=== PATIENT | female | born 1940 | race Caucasian/White ===

== ENCOUNTER 2017-08-05 14:08 | Inpatient (IN) | payer MEDICARE ==
[~2017-08-05] VITALS: Ht 162.6 cm; Wt 68.4 kg
[~2017-08-05 14:08] MED LIST: ALEN1TAB48 PO; AMIO200T PO; ASPI-516 CHEW; CYAN1TAB24; FERR150C; LOSA50TA PO; MELO7.5T27 PO
[2017-08-05 16:45] VITALS: BP 183/85; PULSE 67; RESP 18; TEMP 97.2; O2SAT 95
[2017-08-05] MEDS ORDERED: NALOXONE HCL 0.4 MG/ML AMP IV PUSH PRN (18:15)
[2017-08-05] MEDS ORDERED: LACTULOSE SYRUP 20 GM/30 ML CUP PO PRN (18:15)
[2017-08-05] MEDS ORDERED: MAGNESIUM HYDROXIDE SUSP 30 ML CUP PO PRN (18:15)
[2017-08-05] MEDS ORDERED: SENNOSIDES 8.6 MG TAB PO PRN (18:15)
[2017-08-05] MEDS ORDERED: SODIUM CHLORIDE 0.9% FLUSH 10 ML FLUSH IV FLUSH PRN (18:15)
[2017-08-05] MEDS ORDERED: BISACODYL 10 MG SUPP RECTAL PRN (18:15)
[2017-08-05] MEDS ORDERED: SODIUM CHLOR 0.9% 250 ML INJ 250 ML IV ONE (19:00)
[2017-08-05] MEDS ORDERED: ACETAMINOPHEN 325 MG TAB PO PRN (19:00)
[2017-08-05] MEDS ORDERED: SODIUM CHLOR 0.45% 1000 ML INJ 1,000 ML IV SCH (19:00)
[2017-08-05] MEDS ORDERED: diphenhydrAMINE HCL 25 MG CAP PO PRN (19:00)
[2017-08-05 20:00] VITALS: BP 191/90; PULSE 58; RESP 21; TEMP 96.4; O2SAT 97
[2017-08-05] MEDS ORDERED: diphenhydrAMINE HCL 50 MG/ML VIAL IV PUSH PRN (20:45)
[2017-08-05] MEDS ORDERED: EPINEPHrine HCL (1:1000) 1 MG/ML VIAL OTHER PRN (20:45)
[2017-08-05] MEDS: DOCUSATE SODIUM 50 MG/SENNA 8.6 MG TAB PO SCH (21:00)
[2017-08-05] MEDS: predniSONE 10 MG TAB PO SCH (21:00)
[2017-08-05] MEDS: SODIUM CHLORIDE 0.9% FLUSH 10 ML FLUSH IV FLUSH SCH (21:00)
[2017-08-05] MEDS ORDERED: diphenhydrAMINE HCL 25 MG CAP PO SCH (21:00)
[2017-08-05] MEDS ORDERED: ACETAMINOPHEN 325 MG TAB PO SCH (21:00)
[2017-08-05] MEDS ORDERED: SODIUM CHLORID 0.9% 500 ML INJ 500 ML IV SCH (21:00)
[2017-08-05 21:43] LABS: AUTOMATED NEUTROPHIL # 1.9 TH/MM3 (1.8-7.7); BASOPHIL # 0.1 TH/MM3 (0-0.2); BASOPHIL % 2.2 % (0.0-2.0); EOSINOPHIL # 0.5 TH/MM3 (0-0.4); EOSINOPHIL % 13.3 % (0.0-4.0); HEMATOCRIT 32.6 % (35.0-46.0); LYMPH % 24.4 % (9.0-44.0); LYMPHOCYTE # 0.9 TH/MM3 (1.0-4.8); MEAN CELL VOLUME 98.4 FL (80.0-100.0); MEAN CORPUSCULAR HEMOGLOBIN 34.4 PG (27.0-34.0); NEUT % 53.1 % (16.0-70.0); RED BLOOD COUNT 3.31 MIL/MM3 (4.00-5.30); RED CELL DISTRIBUTION WIDTH 13.6 % (11.6-17.2); WHITE BLOOD COUNT 3.6 TH/MM3 (4.0-11.0)
[2017-08-05 21:46] LABS: HEMO FLAGS AUTO DIFF; PLATELET COUNT 9 TH/MM3 (150-450)
[2017-08-05] MEDS ORDERED: DEXTROSE 5% IN WATE 500 ML INJ 500 ML OTHER SCH (22:00)
[2017-08-05] MEDS ORDERED: IMMUNE GLOBULIN IV SCH (22:00)
[2017-08-05 22:12] LABS: OVALOCYTES 1+ (NORMAL); PLATELET ESTIMATE SMEAR RARE (NORMAL); PLATELET MORPHOLOGY NORMAL (NORMAL); SCAN/DIFF AUTO DIFF CONFIRMED; SPHEROCYTES 1+ (NORMAL)
[2017-08-05 22:38] VITALS: BP 157/79; PULSE 62; RESP 18; TEMP 98.4; O2SAT 94
[2017-08-05 22:59] VITALS: BP 184/85; PULSE 69; RESP 18; TEMP 96.5; O2SAT 95
--- NOTE | 2017-08-05 23:29 | HHI.HP ---
[facility] Primary Care Physician Non-Staff Admission Diagnosis Diagnoses: Travel History International Travel<30 Days: No Contact w/Intl Traveler <30 Da: No Traveled to Known Affected Are: No History of Present Illness 77-year-old female with a past medical history significant for hypertension and atrial fibrillation (not currently anticoagulated) presented to the emergency department until [place] with bilateral lower extremity petechiae and purpura on her bilateral upper extremities and in her mouth. The patient has a history of pancytopenia for which she sees a furnace tender in [place], Dr. Michel. She had a bone marrow biopsy done over the summer which per the patient was negative for cancer. She was initially diagnosed with her pancytopenia in 2014. She is also had a 60 pound weight loss since December. The patient reports that she had a nosebleed with multiple clots on Saturday and . She developed purpura on her bilateral upper extremities and within her mouth and tongue on Saturday. She called her furnace tender office who recommended further evaluation in the emergency department. On arrival to the emergency department , the patient's platelet count was 3. She denies active bleeding. Urine positive for large occult blood. Review of Systems Denies fever or chills Denies blurry vision, otorrhea, rhinorrhea Denies sore throat and cough No chest pain, palpitations, shortness of breath No abdominal pain Denies constipation/diarrhea/nausea/vomiting Denies muscle pain/weakness No rashes Past Family Social History Past Medical History Hypertension Atrial fibrillation (not currently on anticoagulation) Past Surgical History Bilateral cataract surgery Cholecystectomy Appendectomy Bilateral carpal tunnel release Bone marrow biopsy Reported Medications Reported Meds & Active Scripts Active Reported Aspirin 81 Mg Chew 81 Mg CHEW DAILY Losartan (Losartan Potassium) 50 Mg Tab 50 Mg PO BID Ferrex 150 (Polysaccharide Iron Complex) 150 Mg Iron Cap B12 (Cyanocobalamin) 1,000 Mcg Tab Meloxicam 7.5 Mg Tab 7.5 Mg PO DAILY Amiodarone (Amiodarone HCl) 200 Mg Tab 200 Mg PO BID Alendronate (Alendronate Sodium) 70 Mg Tab 70 Mg PO Q7D Allergies: Coded Allergies: aspirin (Verified Allergy, Severe, 08/05/17) To large doses of asprin. piroxicam (Verified Allergy, Severe, 08/05/17) Family History Negative for CAD/DM Social History Denies tobacco, alcohol and illicit drugs Physical Exam Vital Signs Vital Signs Date Time Temp Pulse Resp B/P (MAP) Pulse Ox O2 Delivery O2 Flow Rate FiO2 08/05/17 22:59 96.5 69 18 184/85 95 08/05/17 22:38 98.4 62 18 157/79 94 08/05/17 20:00 96.4 58 21 191/90 (123) 97 08/05/17 16:45 97.2 67 18 183/85 (117) 95 Physical Exam GENERAL: female sitting up in bed eating SKIN: Multiple purpura on bilateral upper extremities, a few scattered lesions on the chest and back, and in the patient's mouth. Bilateral lower extremity petechiae present. HEAD: Atraumatic. Normocephalic. No temporal or scalp tenderness. EYES: Pupils equal round and reactive. Extraocular motions intact. No scleral icterus. No injection or drainage. ENT: Nose without bleeding, purulent drainage or septal hematoma. Throat without erythema, tonsillar hypertrophy or exudate. Uvula midline. Airway patent. NECK: Trachea midline. No JVD or lymphadenopathy. Supple, nontender, no meningeal signs. CARDIOVASCULAR: Regular rate and rhythm without murmurs, gallops, or rubs. RESPIRATORY: Clear to auscultation. Breath sounds equal bilaterally. No wheezes , rales, or rhonchi. GASTROINTESTINAL: Abdomen soft, non-tender, nondistended. No hepato-splenomegaly , or palpable masses. No guarding. MUSCULOSKELETAL: Extremities without clubbing, cyanosis, or edema. No joint tenderness, effusion, or edema noted. No calf tenderness. NEUROLOGICAL: Awake and alert. Cranial nerves II through XII intact. Motor and sensory grossly within normal limits. Normal speech. Laboratory Laboratory Tests Test 08/05/17 21:08 White Blood Count 3.6 Red Blood Count 3.31 Hemoglobin 11.4 Hematocrit 32.6 Mean Corpuscular Volume 98.4 Mean Corpuscular Hemoglobin 34.4 Mean Corpuscular Hemoglobin Concent 35.0 Red Cell Distribution Width 13.6 Platelet Count 9 Mean Platelet Volume 9.1 Neutrophils (%) (Auto) 53.1 Lymphocytes (%) (Auto) 24.4 Monocytes (%) (Auto) 7.0 Eosinophils (%) (Auto) 13.3 Basophils (%) (Auto) 2.2 Neutrophils # (Auto) 1.9 Lymphocytes # (Auto) 0.9 Monocytes # (Auto) 0.3 Eosinophils # (Auto) 0.5 Basophils # (Auto) 0.1 CBC Comment AUTO DIFF Differential Comment AUTO DIFF CONFIRMED Platelet Estimate RARE Platelet Morphology Comment NORMAL Spherocytes 1+ Ovalocytes 1+ Blood Smear Pathologist Review Fibrinogen 361 Lactate Dehydrogenase 327 Result Diagram: 08/05/172107 Caprini VTE Risk Assessment Caprini VTE Risk Assessment: Mod/High Risk (score >= 2) Caprini Risk Assessment Model Point Value = 1 Point Value = 2 Point Value = 3 Point Value = 5 Age 41-60 Minor surgery BMI > 25 kg/m2 Swollen legs Varicose veins or History of unexplained or recurrent spontaneous Oral contraceptives or hormone replacement Sepsis (< 1 month) Serious lung disease, including pneumonia (< 1 month) Abnormal pulmonary function Acute myocardial infarction Congestive heart failure (< 1 month) History of inflammatory bowel disease Medical patient at bed rest Age 61-74 Arthroscopic surgery Major open surgery (> 45 min) Laparoscopic surgery (> 45 min) Malignancy Confined to bed (> 72 hours) Immobilizing plaster cast Central venous access Age >= 75 History of VTE Family history of VTE Factor V Leiden Prothrombin 50080H Lupus anticoagulant Anticardiolipin antibodies Elevated serum homocysteine Heparin-induced thrombocytopenia Other congenital or acquired thrombophilia Stroke (< 1 month) Elective arthroplasty Hip, pelvis, or leg fracture Acute spinal cord injury (< 1 month) Prophylaxis Regimen Total Risk Factor Score Risk Level Prophylaxis Regimen 0-1 Low Early ambulation 2 Moderate Order ONE of the following: *Sequential Compression Device (SCD) *Heparin 5000 units SQ BID 3-4 Higher Order ONE of the following medications: *Heparin 5000 units SQ TID *Enoxaparin/Lovenox 40 mg SQ daily (WT < 150 kg, CrCl > 30 mL/min) *Enoxaparin/Lovenox 30 mg SQ daily (WT < 150 kg, CrCl > 10-29 mL/min) *Enoxaparin/Lovenox 30 mg SQ BID (WT < 150 kg, CrCl > 30 mL/min) AND/OR *Sequential Compression Device (SCD) 5 or more Highest Order ONE of the following medications: *Heparin 5000 units SQ TID (Preferred with Epidurals) *Enoxaparin/Lovenox 40 mg SQ daily (WT < 150 kg, CrCl > 30 mL/min) *Enoxaparin/Lovenox 30 mg SQ daily (WT < 150 kg, CrCl > 10-29 mL/min) *Enoxaparin/Lovenox 30 mg SQ BID (WT < 150 kg, CrCl > 30 mL/min) AND *Sequential Compression Device (SCD) Assessment and Plan Assessment and Plan Assessment/plan: 1. Severe thrombocytopenia with pancytopenia Patient with history of pancytopenia, initially diagnosed in 2014 Platelet count 3 in the deltoid and the ED, 9 currently Status post transfusion of 1 unit of platelets Hematology consulted, appreciate assistance Monitor platelet count closely Monitor for signs of bleeding Transfuse when necessary 2. Atrial fibrillation Continue home amiodarone 3. Hypertension Continue home losartan FEN Regular diet Electrolytes: monitor and replete prn Holding pharmacologic anticoagulation secondary to severe thrombocytopenia Physician Certification 2 Midnight Certification Type: Admission for Inpatient Services Order for Inpatient Services The services are ordered in accordance with Medicare regulations or non- Medicare payer requirements, as applicable. In the case of services not specified as inpatient-only, they are appropriately provided as inpatient services in accordance with the 2-midnight benchmark. Estimated LOS (days): 2 2 days is the estimated time the patient will need to remain in the hospital, assuming treatment plan goals are met and no additional complications. Post-Hospital Plan: Not yet determined Liana Warren MD Aug 05, 2017 23:29
[2017-08-06] VITALS (9 sets, daily range): BP systolic 129–180; BP diastolic 60–84; PULSE 55–78; RESP 16–21; TEMP 96.7–99; O2SAT 95–99
[2017-08-06] MEDS ORDERED: LOSARTAN 50 MG TAB PO ONE (00:45)
--- NOTE | 2017-08-06 07:31 | MB ---
cc: SADE MELO MD DATE OF CONSULTATION 08/05/2017 CHIEF COMPLAINT Thrombocytopenia. HISTORY OF PRESENT ILLNESS Ms. Tian is a 77-year-old lady with a history of anemia and leukopenia who follows with an outside space and missile defense operations, Dr. Guthrie. She presented to the emergency room with petechiae, purpura and epistaxis. This has been has a going on for approximately the past week. She reports that in early July she was treated for an upper respiratory infection with prednisone and ciprofloxacin. White blood cell count at 5.5 from labs taken on July 25, 2017, hemoglobin of 12.3, MCV is 104.7, platelet count is 310,000. From May 30, 2017, white blood cell count is 3.9, hemoglobin is 11.1, MCV is 105.4 with a platelet count of 309,000. From March of 2017, B12 is 768, folate is 15, ferritin of 30, total iron-binding capacity is 342, percent sat of 24.9. Iron is 85. CBC from at time with a white blood cell count of 3, hemoglobin of 11.8 and platelet count of 222,000. In April of 2017 white blood cell count of 3.2, hemoglobin is 12, MCV of 103.1 with a platelet count of 288,000. She also has a history of uterine cancer in 2006 where she underwent a hysterectomy, did not receive any chemotherapy or radiation therapy. She has also been seen by a clinical support associate ad is status post endoscopy and colonoscopy which per report were unrevealing. She has lost approximately 60 pounds unintentionally over the past several months. Upon presentation to our emergency room, she was found to have a white blood cell count of 3.3, hemoglobin at 10.1, platelet count of 3000 with an ANC of 2, absolute lymphocyte count of 0.3 and no abnormal blasts. On chemistry studies she was found to have a creatinine of 1.1, an EGFR of 48, albumin of 3.2, total protein of 6.5, total bili of 0.6. Lactic acid is 0.9. She has a large amount of occult blood present in her urine. REVIEW OF SYSTEMS HEME: Petechiae and purpura. ENT: Nosebleeds. RESPIRATORY: Recovering from upper respiratory infection/bronchitis. All other review of systems are negative, 12 point ROS conducted PAST MEDICAL HISTORY 1. Leukopenia. 2. Anemia. 3. History of atrial fibrillation. 4. Asthma. 5. Hypertension. 6. Arthritis. PAST SURGICAL HISTORY 1. Uterine cancer in 2006 status post hysterectomy. 2. Cholecystectomy. 3. Appendectomy. 4. Breast cyst removal. 5. Carpal tunnel surgery in both hands. 6. Cataract and right eyelid implant in 2001. 7. Cataract pain and left eye implant in 2001. ALLERGIES FELDENE. FISH CONTAINING PRODUCTS. SOCIAL HISTORY The patient denies tobacco, alcohol and illegal drug use. She has a good support system and she currently lives with her friend Donaldo. She is a retired teacher. FAMILY HISTORY No known family history of blood disorders. PHYSICAL EXAMINATION VITAL SIGNS: Temperature of 97.2, pulse of 67, respiratory rate of 18, blood pressure of 183/85, pulse ox is 95%. GENERAL: A well-developed, well-nourished lady in no distress. EYES: Pupils equal, round and reactive to light and accommodation. HEAD: Normocephalic, atraumatic. ENT: With purple lesions present on the inside of her mouth. CARDIOVASCULAR: Regular rate and rhythm with no murmurs. RESPIRATORY: Clear to auscultation bilaterally. ABDOMEN: Soft, nontender, nondistended with bowel sounds present. EXTREMITIES: With no edema. SKIN: No with petechiae present on legs and large purpura present on hands. Large bruising present on arms. Also scattered petechiae on chest, back and abdomen. NEURO: Grossly nonfocal. PSYCH: Appropriate mood and affect. ASSESSMENT AND PLAN 1. Single digit thrombocytopenia that is acute. The patient reports recent recovery from a upper respiratory illness. She was given steroids as well as ciprofloxacin. She reports that she took approximately [id number] days of the ciprofloxacin but then stopped as this made her nauseated. Upon review of adverse effects of ciprofloxacin, there is rare cause of thrombocytopenia, however, not a strong indicator of drug-induced thrombocytopenia. She denies recent hospital admission containing heparin blood products. Coags are within normal limits. She has no early cells on her differential to indicate blasts. She does have leukopenia and anemia, however, these are approximately stable from her blast last values that were approximately 1 year. This is highly suspicious for an ITP. I will give IVIG and steroids 1 mg/kg due to single digit thrombocytopenia. Recent meloxicam and aspirin use which predisposes the patient to bleeding and we will also transfuse platelets. I have discussed that the patient is in a difficult clinical situation with increased risk for bleeding given single digit platelet count and that he use an aspirin use. She is at risk for spontaneous brain bleeding. Our goal is to obtain a safe platelet count to prevent clinically significant bleeding. This is not congenital thrombocytopenia as she does not have a history of low platelet count. Her only recent drug has been ciprofloxacin which is not a common cause of drug induced thrombocytopenia. She has had no other changes in her medicines. 2. Stable chronic leukopenia and anemia. She is on a B12 supplement with most recent count done several months ago within normal limits. Folate within normal limits. Thyroid studies were also within normal limits. She has had a bone marrow biopsy in March of 2017 which shows no evidence of marrow involved by clinical plasma cell population. Normocellular marrow for age, 20-30% with maturing trilineage hepatopoiesis. Comment section indicates several small irregular lymphoid aggregates are present on the core biopsies; the clinical significance of this finding in his undetermined. We will also check LDH and pathologist for review of smear. Will recheck CBC. Upon platelet transfusion we will check a post-platelet transfusion count. 3. Chronic renal disease with creatinine at baseline. MD SISSY Guallpa/GERARDO /8:02 PM /6:51 AM MTDJordan
[2017-08-06] MEDS: DOCUSATE SODIUM 50 MG/SENNA 8.6 MG TAB PO SCH ×2 (08:53→21:00)
[2017-08-06] MEDS: LOSARTAN 50 MG TAB PO SCH ×2 (08:53→21:58)
[2017-08-06] MEDS: AMIODARONE 200 MG TAB PO SCH ×2 (08:53→21:58)
[2017-08-06] MEDS: SODIUM CHLORIDE 0.9% FLUSH 10 ML FLUSH IV FLUSH SCH ×2 (08:54→22:02)
[2017-08-06 09:09] LABS: RETIC % 1.7 % (0.4-3.0)
[2017-08-06 09:15] LABS: AUTOMATED NEUTROPHIL # 0.4 TH/MM3 (1.8-7.7); BASOPHIL % 1.5 % (0.0-2.0); EOSINOPHIL % 0.8 % (0.0-4.0); HEMATOCRIT 29.4 % (35.0-46.0); LYMPH % 34.3 % (9.0-44.0); LYMPHOCYTE # 0.2 TH/MM3 (1.0-4.8); MEAN CELL VOLUME 97.9 FL (80.0-100.0); MEAN CORPUSCULAR HEMOGLOBIN 33.6 PG (27.0-34.0); MEAN CORPUSCULAR HGB CONC 34.3 % (32.0-36.0); MONO % 5.5 % (0.0-8.0); NEUT % 57.9 % (16.0-70.0); RED CELL DISTRIBUTION WIDTH 13.6 % (11.6-17.2); WHITE BLOOD COUNT 0.6 TH/MM3 (4.0-11.0)
[2017-08-06 09:17] LABS: REVIEW FLAG FINAL
[2017-08-06 09:21] LABS: HEMO FLAGS AUTO DIFF
[2017-08-06 09:25] LABS: PLATELET COUNT 3 TH/MM3 (150-450)
[2017-08-06 09:26] LABS: ALT (GPT) 20 U/L (10-53); ANION GAP 8 MEQ/L (5-15); AST (GOT) 17 U/L (15-37); BICARBONATE 24.7 MEQ/L (21.0-32.0); BLOOD UREA NITROGEN 20 MG/DL (7-18); CHLORIDE 105 MEQ/L (98-107); GLOMERULAR FILTRATION RATE 48 ML/MIN (>89); POTASSIUM 4.4 MEQ/L (3.5-5.1); SODIUM (NA) 138 MEQ/L (136-145)
[2017-08-06 09:38] LABS: ALKALINE PHOSPHATASE 67 U/L (45-117); LDH SERUM 263 U/L (84-246); TOTAL BILIRUBIN ADULT 0.7 MG/DL (0.2-1.0)
--- NOTE | 2017-08-06 09:59 | RADRPT ---
EXAM DATE/TIME: 08/06/2017 09:13 [facility] COMPARISON: No previous studies available for comparison. INDICATIONS : Increased lab values. MEDICAL HISTORY : Hypertension. Arthritis. Afib. Asthma. Leukopenia. Uterine cancer. SURGICAL HISTORY : Appendectomy. Cholecystectomy. Hysterectomy. Bilateral cataract surgery. Bilateral carpel tunnel rele ase. ENCOUNTER: Initial ACUITY: 1 day PAIN SCORE: 2/10 LOCATION: Bilateral upper quadrant MEASUREMENTS: LIVER: 18.1 cm length COMMON DUCT: 8 mm RIGHT KIDNEY: 10.6 x 4.6 x 4.5 cm SPLEEN: 11.2 cm length FINDINGS: LIVER: Normal echotexture without focal lesion or ductal dilatation. COMMON DUCT: No intraluminal mass or stone visualized. GALLBLADDER: Surgically absent. PANCREAS: The visualized portions are within normal limits. Tail is not well-demonstrated. RIGHT KIDNEY: Mild prominence of the central collecting system. Otherwise unremarkable. SPLEEN: No focal lesion. CONCLUSION: 1. Status post cholecystectomy with slight prominence of the common bile duct. This is a common findi ng following cholecystectomy and generally secondary to reservoir effect. 2. Mild prominence of the right renal collecting system. Sergio Payne MD on August 06, 2017 at 9:53 Board Certified Radiologist. This report was verified electronically.
[2017-08-06 10:08] LABS: BANDS 2 % (0-6); METAMYELOCYTES 2 % (0-1); NEUTROPHIL # MANUAL DIFF 0.4 TH/MM3 (1.8-7.7); POLYS (SEG NEUTROPHILS) 56 % (16-70); WBC DIFF SAMPLE 41
[2017-08-06 10:09] LABS: PLATELET ESTIMATE SMEAR RARE (NORMAL); SCAN/DIFF FINAL DIFF MANUAL
[2017-08-06] MEDS ORDERED: SODIUM CHLOR 0.9% 250 ML INJ 250 ML IV ONE (10:30)
[2017-08-06] MEDS ORDERED: ACETAMINOPHEN 325 MG TAB PO PRN (10:30)
[2017-08-06] MEDS ORDERED: diphenhydrAMINE HCL 25 MG CAP PO PRN (10:30)
[2017-08-06 12:13] LABS: APTT (PATIENT) 26.4 SEC (24.3-30.1); PROTHROMBIN TIME - PATIENT 10.6 SEC (9.8-11.6)
--- NOTE | 2017-08-06 12:31 | EKG ---
Date Performed: 08/05/2017 Time Performed: 18:37:32 PTAGE: 77 years EKG: Sinus rhythm MINIMAL VOLTAGE CRITERIA FOR LVH, CONSIDER NORMAL VARIANT BORDERLINE ECG NO PREVIOUS TRACING DOCTOR: Zachary Neville Interpretating Date/Time 08/06/2017 12:30:54
--- NOTE | 2017-08-06 12:42 | PD.ONC.PN ---
Subjective Subjective Remarks Afebrile overnight. Patient resting in room without complaint. Denies bleeding. Has multiple bruises and petechiae. Has not tasted any blood in her mouth. Denies pain. Does not remember any trauma. Objective Data Date Time Temp Pulse Resp B/P (MAP) Pulse Ox O2 Delivery O2 Flow Rate FiO2 08/06/17 11:39 97.3 66 18 167/70 08/06/17 08:00 97.7 65 16 177/84 (115) 96 08/06/17 05:15 69 20 170/79 08/06/17 02:21 156/65 (95) 08/06/17 00:00 99.0 78 18 180/84 (116) 96 08/06/17 00:00 96.7 67 21 140/79 (99) 95 08/05/17 22:59 96.5 69 18 184/85 95 08/05/17 22:38 98.4 62 18 157/79 94 08/05/17 20:00 96.4 58 21 191/90 (123) 97 08/05/17 16:45 97.2 67 18 183/85 (117) 95 08/06/17 08/06/17 08/06/17 07:00 15:00 23:00 Intake Total 240 ml 226 ml Balance 240 ml 226 ml Result Diagram: 08/06/17 0755 08/06/17 0755 Laboratory Results Laboratory Tests Test 08/05/17 21:08 08/06/17 07:55 08/06/17 11:00 White Blood Count 3.6 TH/MM3 0.6 TH/MM3 Red Blood Count 3.31 MIL/MM3 3.00 MIL/MM3 Hemoglobin 11.4 GM/DL 10.1 GM/DL Hematocrit 32.6 % 29.4 % Mean Corpuscular Volume 98.4 FL 97.9 FL Mean Corpuscular Hemoglobin 34.4 PG 33.6 PG Mean Corpuscular Hemoglobin Concent 35.0 % 34.3 % Red Cell Distribution Width 13.6 % 13.6 % Platelet Count 9 TH/MM3 3 TH/MM3 Mean Platelet Volume 9.1 FL 10.3 FL Neutrophils (%) (Auto) 53.1 % 57.9 % Lymphocytes (%) (Auto) 24.4 % 34.3 % Monocytes (%) (Auto) 7.0 % 5.5 % Eosinophils (%) (Auto) 13.3 % 0.8 % Basophils (%) (Auto) 2.2 % 1.5 % Neutrophils # (Auto) 1.9 TH/MM3 0.4 TH/MM3 Lymphocytes # (Auto) 0.9 TH/MM3 0.2 TH/MM3 Monocytes # (Auto) 0.3 TH/MM3 0.0 TH/MM3 Eosinophils # (Auto) 0.5 TH/MM3 0.0 TH/MM3 Basophils # (Auto) 0.1 TH/MM3 0.0 TH/MM3 CBC Comment AUTO DIFF AUTO DIFF Differential Comment AUTO DIFF CONFIRMED FINAL DIFF MANUAL Platelet Estimate RARE RARE Platelet Morphology Comment NORMAL Spherocytes 1+ Ovalocytes 1+ Blood Smear Pathologist Review Fibrinogen 361 mg/dL 309 mg/dL Lactate Dehydrogenase 327 U/L 263 U/L Differential Total Cells Counted 41 Neutrophils % (Manual) 56 % Band Neutrophils % 2 % Lymphocytes % 37 % Monocytes % 2 % Neutrophils # (Manual) 0.4 TH/MM3 Metamyelocytes 2 % Reticulocyte Count 1.7 % Absolute Reticulocyte Count 48.3 MIL/L Haptoglobin 22 MG/DL Blood Urea Nitrogen 20 MG/DL Creatinine 1.09 MG/DL Random Glucose 179 MG/DL Total Protein 7.6 GM/DL Albumin 2.9 GM/DL Calcium Level 8.4 MG/DL Alkaline Phosphatase 67 U/L Aspartate Amino Transf (AST/SGOT) 17 U/L Alanine Aminotransferase (ALT/SGPT) 20 U/L Total Bilirubin 0.7 MG/DL Sodium Level 138 MEQ/L Potassium Level 4.4 MEQ/L Chloride Level 105 MEQ/L Carbon Dioxide Level 24.7 MEQ/L Anion Gap 8 MEQ/L Estimat Glomerular Filtration Rate 48 ML/MIN Prothrombin Time 10.6 SEC Prothromb Time International Ratio 1.0 RATIO Activated Partial Thromboplast Time 26.4 SEC Imaging Studies Last 24 hours Impressions Liver Ultrasound 08/06/17 0000 Signed Impressions: Service Date/Time: Sunday, August 06, 2017 09:13 - CONCLUSION: 1. Status post cholecystectomy with slight prominence of the common bile duct. This is a common finding following cholecystectomy and generally secondary to reservoir effect. 2. Mild prominence of the right renal collecting system. Sergio Payne MD Administered Medications Medications (Trade) Dose Ordered Sig/Brendan Route PRN Reason Start Time Stop Time Status Last Admin Dose Admin Senna/Docusate Sodium (Alyssa-Colace) 1 tab BID PO 08/05/17 21:00 08/06/17 08:53 Acetaminophen (Tylenol) 650 mg Q4H PRN PO SEE LABEL COMMENTS 08/05/17 19:00 08/06/17 18:59 08/06/17 10:58 Prednisone (Deltasone) 70 mg DAILY@2100 PO 08/05/17 21:00 08/05/17 21:00 Sodium Chloride 500 ml @ 500 mls/hr Q24H IV 08/05/17 21:00 08/06/17 21:59 08/05/17 21:00 Acetaminophen (Tylenol) 650 mg Q24H PO 08/05/17 21:00 08/06/17 21:01 08/05/17 21:00 Dextrose 500 ml @ 30 mls/hr Q24H OTHER 08/05/17 22:00 08/07/17 14:39 08/05/17 22:00 Diphenhydramine HCl (Benadryl) 25 mg Q24H PO 08/05/17 21:00 08/06/17 21:01 08/05/17 21:00 Immune Globulin 70 gm/Syringe / Bag 700 ml @ 20.37 mls/ hr Q24H IV 08/05/17 22:00 08/07/17 21:59 08/06/17 05:15 Amiodarone HCl (Cordarone) 200 mg BID PO 08/06/17 09:00 08/06/17 08:53 Losartan Potassium (Cozaar) 50 mg BID PO 08/06/17 09:00 08/06/17 08:53 Sodium Chloride 250 ml @ 15 mls/hr ONCE ONCE IV 08/06/17 10:30 08/07/17 03:09 08/06/17 10:30 Diphenhydramine HCl (Benadryl) 25 mg Q4H PRN PO SEE LABEL COMMENTS 08/06/17 10:30 08/06/17 10:59 Objective Remarks GENERAL: Elderly female sitting up in bed in nad SKIN: Warm and dry. scattered bruises and petechiae. large bruise over right CVA HEAD: Normocephalic. EYES: No injection or drainage. NECK: Supple, trachea midline. CARDIOVASCULAR: Regular rate and rhythm RESPIRATORY: Breath sounds equal bilaterally. No accessory muscle use. GASTROINTESTINAL: Abdomen soft, non-tender, nondistended. EXTREMITIES: No cyanosis NEUROLOGICAL: No obvious focal deficit. Awake, alert, and oriented x3. Assessment/Plan Problem List: (1) Pancytopenia ICD Codes: D61.818 - Other pancytopenia Plan: --had recent recovery from a upper respiratory illness. --was given steroids + ciprofloxacin. --denies recent hospital admission containing heparin blood products. Coags are within normal limits. She has no early cells on --on admission had leukopenia and anemia which were approximately stable from her blast last values that were approximately 1 year ago. However 08/06 WBC counts fell to less than 1000. --given IVIG and steriods 1mg/kg for suspicion of ITP-started on 08/05 --bone marrow biopsy March of 2017 showed no evidence of marrow involved by clinical plasma cell population. Normocellular marrow for age, 20-30% with maturing trilineage hematopoiesis. Comment section indicates several small irregular lymphoid aggregates are present on the core biopsies; the clinical significance of this finding in his undetermined. --LDH elevated, haptoglobin low, but bilirubin is WNL --pathologist review of smear is pending Assessment 77-year-old female admitted with petechiae, purpura and epistaxis. Hematology following for pancytopenia. history of uterine cancer in 2006 -->underwent a hysterectomy, did not receive any chemotherapy or radiation therapy. --recently seen by expressive art therapist and is status post endoscopy and colonoscopy which per report were unrevealing. has lost approximately 60 pounds unintentionally over the past several months. h/o Leukopenia. Anemia. atrial fibrillation. Asthma. Hypertension. Arthritis. Plan 1. proceed with day 2 of IVIG 2. give 1 unit platelets 3. initiate neutropenic precautions. will transfer to [facility] oncology for higher level of care in this profoundly neutropenic and thrombocytopenic patient 4. obtain CT C/A/P 5. obtain post-transfusion platelet count. Attending Statement The exam, history, and the medical decision-making described in the above note were completed with the assistance of the mid-level provider. I reviewed and agree with the findings presented. I attest that I had a [id number] encounter with the patient on the same day, and personally performed and documented my assessment and findings in the medical record. 77 yoF with single digit thrombocytopenia. Followed by outside store sales leader/ oncology for anemia/leukopenia. In 03/2017 s/p bone marrow biopsy with trilineage hematopoiesis. Normocellular for age. No clinical or laboratory evidence of HIT, DIC, TTP. 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 Non responsive to platelet transfusion. Petechiae and bruising due to TCP. Will check HIV, hepatitis studies, vitamin B12, folate, abdominal imaging to evaluate spleen, flow cytometry. Current worsening of leukopenia complicating clinical picture. ? further autoimmune phenomenon affecting WBC, especially after platelet transfusion. Will initiate neutropenic precautions and will continue to follow closely. No further transfusion unless active bleeding. Continue IVIG and steroids. Continue to follow CBC, CMP daily. Ena Woodall Aug 06, 2017 12:42 Corina Pryor MD Aug 07, 2017 01:24
[2017-08-06] MEDS ORDERED: IOHEXOL 350 MG/ML 10 ML VIAL (for RAD DIAG) IVCONTRAST ONE (14:24)
--- NOTE | 2017-08-06 14:50 | RADRPT ---
EXAM DATE/TIME: 08/06/2017 14:08 [facility] COMPARISON: No previous studies available for comparison. INDICATIONS : Mild chest pains, possible mass. IV CONTRAST: 76 cc Omnipaque 350 (iohexol) IV RADIATION DOSE: 5.10 CTDIvol (mGy) ; Combined studies - Thorax/Abdomen/Pelvis MEDICAL HISTORY : Cardiovascular disease. Uterine cancer. SURGICAL HISTORY : Hysterectomy. ENCOUNTER: Initial ACUITY: 1 day PAIN SCALE: 1/10 LOCATION: Bilateral chest TECHNIQUE: Volumetric scanning of the chest was performed. Using automated exposure control and adjustment of t he mA and/or kV according to patient size, radiation dose was kept as low as reasonably achievable to obtain optimal diagnostic quality images. DICOM format image data is available electronically for review and comparison. Follow-up recommendations for detected pulmonary nodules are based at a minimum on nodule size and pa tient risk factors according to Fleischner Society Guidelines. FINDINGS: LUNGS: There is no consolidation or pneumothorax. No concerning pulmonary nodule is visualized. PLEURA: There is no pleural thickening or pleural effusion. MEDIASTINUM: The heart and great vessels demonstrate no acute abnormality. There is no mediastinal or hilar lymph adenopathy. Dense coronary atherosclerotic disease AXILLAE: Within normal limits. No lymphadenopathy. SKELETAL: Within normal limits for patient age. MISCELLANEOUS: The visualized upper abdominal organs demonstrate no acute abnormality. CONCLUSION: Normal examination, dense coronary atherosclerotic disease. Aaron Churchill MD on August 06, 2017 at 14:47 Board Certified Radiologist. This report was verified electronically.
--- NOTE | 2017-08-06 14:52 | RADRPT ---
EXAM DATE/TIME: 08/06/2017 14:08 [facility] COMPARISON: No previous studies available for comparison. INDICATIONS : Diffuse abdomen pain for one day. IV CONTRAST: 76 cc Omnipaque 350 (iohexol) IV ORAL CONTRAST: No oral contrast ingested. RADIATION DOSE: 5.10 CTDIvol (mGy) ; Combined studies - Thorax/Abdomen/Pelvis MEDICAL HISTORY : Cardiovascular disease. Uterine cancer. SURGICAL HISTORY : Hysterectomy. ENCOUNTER: Initial ACUITY: 1 day PAIN SCALE: 1/10 LOCATION: Bilateral lower quadrant TECHNIQUE: Volumetric scanning of the abdomen and pelvis was performed. Using automated exposure control and ad justment of the mA and/or kV according to patient size, radiation dose was kept as low as reasonably achievable to obtain optimal diagnostic quality images. DICOM format image data is available electro nically for review and comparison. FINDINGS: LOWER LUNGS: The visualized lower lungs are clear. LIVER: Homogeneous density without lesion. There is no dilation of the biliary tree. No calcified gallston es. SPLEEN: Normal size without lesion. PANCREAS: Within normal limits. KIDNEYS: Normal in size and shape. There is no mass, stone or hydronephrosis. ADRENAL GLANDS: Within normal limits. VASCULAR: There is no aortic aneurysm. BOWEL/MESENTERY: The stomach, small bowel, and colon demonstrate no acute abnormality. There is no free intraperitone al air or fluid. ABDOMINAL WALL: Within normal limits. There is a linear scar along the midline of the pelvis likely related to surger y RETROPERITONEUM: There is no lymphadenopathy. BLADDER: No wall thickening or mass. REPRODUCTIVE: Within normal limits. INGUINAL: There is no lymphadenopathy or hernia. MUSCULOSKELETAL: Within normal limits for patient age. CONCLUSION: Normal examination. Aaron Churchill MD on August 06, 2017 at 14:48 Board Certified Radiologist. This report was verified electronically.
--- NOTE | 2017-08-06 18:26 | HHI.PR ---
Subjective Remarks The patient was about to eat dinner. She had concerns about her lately count and she will over her past medical history in regards to her blood counts. She says she had a reaction to the transfusion earlier. Objective Vitals Vital Signs Date Time Temp Pulse Resp B/P (MAP) Pulse Ox O2 Delivery O2 Flow Rate FiO2 08/06/17 16:37 98.7 55 18 129/60 (83) 99 08/06/17 12:02 97.8 69 18 153/72 (99) 97 08/06/17 12:00 97.3 66 18 167/76 (106) 95 08/06/17 11:39 97.3 66 18 167/70 08/06/17 08:00 97.7 65 16 177/84 (115) 96 08/06/17 05:15 69 20 170/79 08/06/17 02:21 156/65 (95) 08/06/17 00:00 99.0 78 18 180/84 (116) 96 08/06/17 00:00 96.7 67 21 140/79 (99) 95 08/05/17 22:59 96.5 69 18 184/85 95 08/05/17 22:38 98.4 62 18 157/79 94 08/05/17 20:00 96.4 58 21 191/90 (123) 97 I/O 08/05/17 08/05/17 08/05/17 08/06/17 08/06/17 08/06/17 07:00 15:00 23:00 07:00 15:00 23:00 Intake Total 542 ml 240 ml 226 ml Balance 542 ml 240 ml 226 ml Intake Oral 300 ml 240 ml Platelets 232 ml 222 ml Blood Product IV Normal Saline Flush 10 ml 4 ml # Voids 3 3 # Bowel Movements 1 Result Diagram: 08/06/17 1610 08/06/17 0755 Imaging Last Impressions Liver Ultrasound 08/06/17 0000 Signed Impressions: Service Date/Time: Sunday, August 06, 2017 09:13 - CONCLUSION: 1. Status post cholecystectomy with slight prominence of the common bile duct. This is a common finding following cholecystectomy and generally secondary to reservoir effect. 2. Mild prominence of the right renal collecting system. Sergio Payne MD Chest CT 08/06/17 0000 Signed Impressions: Service Date/Time: Sunday, August 06, 2017 14:08 - CONCLUSION: Normal examination, dense coronary atherosclerotic disease. Aaron Churchill MD Abdomen/Pelvis CT 08/06/17 0000 Signed Impressions: Service Date/Time: Sunday, August 06, 2017 14:08 - CONCLUSION: Normal examination. Aaron Churchill MD Objective Remarks GENERAL: Resting comfortably. SKIN: Multiple purpura on bilateral upper extremities, a few scattered lesions on the chest and back, and in the patient's mouth. Bilateral lower extremity petechiae present. HEAD: Atraumatic. Normocephalic. No temporal or scalp tenderness. EYES: Pupils equal round and reactive. Extraocular motions intact. No scleral icterus. No injection or drainage. ENT: Nose without bleeding, purulent drainage or septal hematoma. Throat without erythema, tonsillar hypertrophy or exudate. Uvula midline. Airway patent. NECK: Trachea midline. No JVD or lymphadenopathy. Supple, nontender, no meningeal signs. CARDIOVASCULAR: Regular rate and rhythm without murmurs, gallops, or rubs. RESPIRATORY: Clear to auscultation. Breath sounds equal bilaterally. No wheezes , rales, or rhonchi. GASTROINTESTINAL: Abdomen soft, non-tender, nondistended. No hepato-splenomegaly , or palpable masses. No guarding. MUSCULOSKELETAL: Extremities without clubbing, cyanosis, or edema. No joint tenderness, effusion, or edema noted. No calf tenderness. NEUROLOGICAL: Awake and alert. Cranial nerves II through XII intact. Motor and sensory grossly within normal limits. Normal speech. PSYCH: Mood and affect appropriate. Medications and IVs Current Medications Medications (Trade) Dose Ordered Sig/Brendan Route Start Time Stop Time Status Last Admin (NS Flush) 2 ml UNSCH PRN IV FLUSH 08/05/17 18:15 (NS Flush) 2 ml BID IV FLUSH 08/05/17 21:00 (Tylenol) 650 mg Q4H PRN PO 08/05/17 18:15 (Zofran Inj) 4 mg Q6H PRN IVP 08/05/17 18:15 (Narcan Inj) 0.4 mg UNSCH PRN IV PUSH 08/05/17 18:15 (Alyssa-Colace) 1 tab BID PO 08/05/17 21:00 08/06/17 08:53 (Milk Of Magnesia Liq) 30 ml Q12H PRN PO 08/05/17 18:15 (Senokot) 17.2 mg Q12H PRN PO 08/05/17 18:15 (Dulcolax Supp) 10 mg DAILY PRN RECTAL 08/05/17 18:15 (Lactulose Liq) 30 ml DAILY PRN PO 08/05/17 18:15 (Tylenol) 650 mg Q4H PRN PO 08/05/17 19:00 08/06/17 18:59 08/06/17 10:58 (Benadryl) 25 mg Q4H PRN PO 08/05/17 19:00 08/06/17 18:59 (Deltasone) 70 mg DAILY@2100 PO 08/05/17 21:00 08/05/17 21:00 Sodium Chloride 500 ml @ 500 mls/hr Q24H IV 08/05/17 21:00 08/06/17 21:59 08/05/17 21:00 (Tylenol) 650 mg Q24H PO 08/05/17 21:00 08/06/17 21:01 08/05/17 21:00 Dextrose 500 ml @ 30 mls/hr Q24H OTHER 08/05/17 22:00 08/07/17 14:39 08/05/17 22:00 (Benadryl) 25 mg Q24H PO 08/05/17 21:00 08/06/17 21:01 08/05/17 21:00 Immune Globulin 70 gm/Syringe / Bag 700 ml @ 20.37 mls/ hr Q24H IV 08/05/17 22:00 08/07/17 21:59 08/06/17 05:15 (Benadryl Inj) 50 mg UNSCH PRN IV PUSH 08/05/17 20:45 08/08/17 20:44 (Adrenalin (1:1000) Inj) 0.3 mg Q10M PRN OTHER 08/05/17 20:45 08/08/17 20:44 (Cordarone) 200 mg BID PO 08/06/17 09:00 08/06/17 08:53 (Cozaar) 50 mg BID PO 08/06/17 09:00 08/06/17 08:53 Sodium Chloride 250 ml @ 15 mls/hr ONCE ONCE IV 08/06/17 10:30 08/07/17 03:09 08/06/17 10:30 (Tylenol) 650 mg Q4H PRN PO 08/06/17 10:30 (Benadryl) 25 mg Q4H PRN PO 08/06/17 10:30 08/06/17 10:59 A/P Assessment and Plan Severe thrombocytopenia with pancytopenia Patient with history of pancytopenia, initially diagnosed in 2014 Platelet count 3 initially. Status post transfusion of 2 units of platelets. Hematology consulted, appreciate assistance Currently receiving IVIG for ITP Monitor platelet count closely Monitor for signs of bleeding Transfuse per hematology Neutropenic precautions Atrial fibrillation - Continue home amiodarone Hypertension - Continue home losartan PPx: Holding pharmacologic anticoagulation secondary to severe thrombocytopenia Michael Haile DO Aug 06, 2017 18:26
[2017-08-06] MEDS ORDERED: ACETAMINOPHEN 500 MG CPLT PO ONE (18:30)
[2017-08-06 19:01] LABS: BLOOD, URINE TRACE (NEG); COMMENT (UR) CULT NOT INDICATED; CULTURE IF INDICATED CULT NOT INDICATED; GLUCOSE,URINE TRACE mg/dL (NEG); KETONE, URINE NEG (NEG); NITRITE,URINE NEG (NEG); PH, URINE 6.5 (5.0-8.5); URINE COLOR YELLOW (YELLW/STRAW)
[2017-08-06] MEDS ORDERED: diphenhydrAMINE HCL 50 MG/ML VIAL IV PUSH PRN (20:00)
[2017-08-06] MEDS ORDERED: EPINEPHrine HCL (1:1000) 1 MG/ML VIAL OTHER PRN (20:00)
[2017-08-06] MEDS: DEXTROSE 5% IN WATE 1000ML INJ 1,000 ML IV SCH (20:30)
--- NOTE | 2017-08-06 20:44 | RADRPT ---
EXAM DATE/TIME: 08/06/2017 20:35 [facility] COMPARISON: No previous studies available for comparison. INDICATIONS : Cephalgia with severe thrombocytopenia. RADIATION DOSE: 44.23 CTDIvol (mGy) MEDICAL HISTORY : Cardiovascular disease. Hypertension. Uterine cancer. SURGICAL HISTORY : Hysterectomy. ENCOUNTER: Initial ACUITY: 1 day PAIN SCALE: 5/10 LOCATION: cranial TECHNIQUE: Multiple contiguous axial images were obtained of the head. Using automated exposure control and adj ustment of the mA and/or kV according to patient size, radiation dose was kept as low as reasonably a chievable to obtain optimal diagnostic quality images. DICOM format image data is available electro nically for review and comparison. FINDINGS: CEREBRUM: The ventricles are normal for age. No evidence of midline shift, mass lesion, hemorrhage or acute in farction. No extra-axial fluid collections are seen. POSTERIOR FOSSA: The cerebellum and brainstem are intact. The 4th ventricle is midline. The cerebellopontine angle i s unremarkable. EXTRACRANIAL: The visualized portion of the orbits is intact. SKULL: The calvaria is intact. No evidence of skull fracture. CONCLUSION: 1. Age-appropriate atrophy. 2. No acute findings. No evidence of acute hemorrhage. Ulises Freire MD on August 06, 2017 at 20:41 Board Certified Radiologist. This report was verified electronically.
[2017-08-06] MEDS: predniSONE 10 MG TAB PO SCH (21:56)
[2017-08-07] VITALS (16 sets, daily range): BP systolic 138–183; BP diastolic 70–92; PULSE 52–68; RESP 16–19; TEMP 97.6–98.8; O2SAT 95–100
[2017-08-07] MEDS ORDERED: ACETAMINOPHEN 325 MG TAB PO SCH (04:00)
[2017-08-07] MEDS ORDERED: SODIUM CHLORID 0.9% 500 ML INJ 500 ML IV SCH (04:00)
[2017-08-07] MEDS ORDERED: diphenhydrAMINE HCL 25 MG CAP PO SCH (04:00)
[2017-08-07] MEDS ORDERED: IMMUNE GLOBULIN IV SCH (05:00)
[2017-08-07] MEDS ORDERED: DEXTROSE 5% IN WATE 500 ML INJ 500 ML OTHER SCH (05:00)
[2017-08-07 08:23] LABS: AUTOMATED NEUTROPHIL # 1.5 TH/MM3 (1.8-7.7); BASOPHIL % 0.1 % (0.0-2.0); HEMATOCRIT 27.9 % (35.0-46.0); LYMPH % 14.8 % (9.0-44.0); LYMPHOCYTE # 0.3 TH/MM3 (1.0-4.8); MEAN CELL VOLUME 98.7 FL (80.0-100.0); MEAN CORPUSCULAR HEMOGLOBIN 34.4 PG (27.0-34.0); MEAN CORPUSCULAR HGB CONC 34.9 % (32.0-36.0); MONO % 2.7 % (0.0-8.0); NEUT % 82.4 % (16.0-70.0); RED BLOOD COUNT 2.83 MIL/MM3 (4.00-5.30); RED CELL DISTRIBUTION WIDTH 13.8 % (11.6-17.2); WHITE BLOOD COUNT 1.8 TH/MM3 (4.0-11.0)
[2017-08-07 08:25] LABS: HEMO FLAGS AUTO DIFF
[2017-08-07] MEDS: DOCUSATE SODIUM 50 MG/SENNA 8.6 MG TAB PO SCH ×2 (08:26→21:18)
[2017-08-07] MEDS: AMIODARONE 200 MG TAB PO SCH ×2 (08:26→21:18)
[2017-08-07] MEDS: LOSARTAN 50 MG TAB PO SCH ×2 (08:26→21:18)
[2017-08-07 08:27] LABS: PLATELET COUNT 6 TH/MM3 (150-450)
[2017-08-07] MEDS: SODIUM CHLORIDE 0.9% FLUSH 10 ML FLUSH IV FLUSH SCH ×2 (08:28→21:00)
[2017-08-07 08:31] LABS: APTT (PATIENT) 23.3 SEC (24.3-30.1); PROTHROMBIN TIME - PATIENT 10.1 SEC (9.8-11.6)
[2017-08-07 08:46] LABS: ANION GAP 9 MEQ/L (5-15); AST (GOT) 16 U/L (15-37); BICARBONATE 25.7 MEQ/L (21.0-32.0); BLOOD UREA NITROGEN 27 MG/DL (7-18); CHLORIDE 107 MEQ/L (98-107); GLOMERULAR FILTRATION RATE 43 ML/MIN (>89); POTASSIUM 4.1 MEQ/L (3.5-5.1); SODIUM (NA) 142 MEQ/L (136-145)
[2017-08-07 08:50] LABS: ALKALINE PHOSPHATASE 60 U/L (45-117); ALT (GPT) 22 U/L (10-53); LDH SERUM 248 U/L (84-246); TOTAL BILIRUBIN ADULT 0.4 MG/DL (0.2-1.0)
[2017-08-07 09:14] LABS: BANDS 21 % (0-6); NEUTROPHIL # MANUAL DIFF 1.5 TH/MM3 (1.8-7.7); POLYS (SEG NEUTROPHILS) 63 % (16-70); WBC DIFF SAMPLE 100
[2017-08-07 09:15] LABS: OVALOCYTES 1+ (NORMAL); PLATELET ESTIMATE SMEAR RARE (NORMAL); PLATELET MORPHOLOGY ENLARGED (NORMAL); SCAN/DIFF FINAL DIFF MANUAL
--- NOTE | 2017-08-07 10:42 | PD.ONC.PN ---
Subjective Subjective Remarks Afebrile Reports her skin looks better today Denies any bleeding No acute complaints Objective Data Date Time Temp Pulse Resp B/P (MAP) Pulse Ox O2 Delivery O2 Flow Rate FiO2 08/07/17 09:16 97.7 56 16 156/82 (106) 96 08/07/17 07:36 97.9 59 18 174/92 (119) 97 08/07/17 07:00 56 08/07/17 06:48 97.7 58 16 151/80 (103) 97 08/07/17 06:29 97.8 52 16 152/77 (102) 95 08/07/17 06:13 58 16 142/80 08/07/17 05:59 97.9 16 142/80 (100) 97 08/07/17 04:36 97.8 63 16 138/70 (92) 98 08/07/17 04:00 55 08/07/17 00:20 98.8 61 16 158/82 (107) 97 08/07/17 00:09 54 08/06/17 22:10 57 08/06/17 20:22 98.2 59 18 149/72 (97) 97 08/06/17 16:37 98.7 55 18 129/60 (83) 99 08/06/17 12:02 97.8 69 18 153/72 (99) 97 08/06/17 12:00 97.3 66 18 167/76 (106) 95 08/06/17 11:39 97.3 66 18 167/70 08/07/17 08/07/17 08/07/17 07:00 15:00 23:00 Intake Total 500 ml Output Total 400 ml Balance 100 ml Result Diagram: 08/07/17 0811 08/07/17 0811 Laboratory Results Laboratory Tests Test 08/06/17 11:00 08/06/17 16:10 08/06/17 18:38 08/07/17 08:11 Prothrombin Time 10.6 SEC 10.1 SEC Prothromb Time International Ratio 1.0 RATIO 1.0 RATIO Activated Partial Thromboplast Time 26.4 SEC 23.3 SEC Fibrinogen 309 mg/dL 282 mg/dL Platelet Count 5 TH/MM3 6 TH/MM3 Vitamin B12 Level 1213 PG/ML Folate 16.5 NG/ML Thyroid Stimulating Hormone 3rd Gen 0.640 uIU/ML Urine Color YELLOW Urine Turbidity CLEAR Urine pH 6.5 Urine Specific [place] GREATER THAN 1.050 Urine Protein TRACE mg/dL Urine Glucose (UA) TRACE mg/dL Urine Ketones NEG mg/dL Urine Occult Blood TRACE Urine Nitrite NEG Urine Bilirubin NEG Urine Urobilinogen LESS THAN 2.0 MG/DL Urine Leukocyte Esterase NEG Urine RBC 1 /hpf Urine WBC LESS THAN 1 /hpf Microscopic Urinalysis Comment CULT NOT INDICATED White Blood Count 1.8 TH/MM3 Red Blood Count 2.83 MIL/MM3 Hemoglobin 9.7 GM/DL Hematocrit 27.9 % Mean Corpuscular Volume 98.7 FL Mean Corpuscular Hemoglobin 34.4 PG Mean Corpuscular Hemoglobin Concent 34.9 % Red Cell Distribution Width 13.8 % Mean Platelet Volume 10.1 FL Neutrophils (%) (Auto) 82.4 % Lymphocytes (%) (Auto) 14.8 % Monocytes (%) (Auto) 2.7 % Eosinophils (%) (Auto) 0.0 % Basophils (%) (Auto) 0.1 % Neutrophils # (Auto) 1.5 TH/MM3 Lymphocytes # (Auto) 0.3 TH/MM3 Monocytes # (Auto) 0.0 TH/MM3 Eosinophils # (Auto) 0.0 TH/MM3 Basophils # (Auto) 0.0 TH/MM3 CBC Comment AUTO DIFF Differential Total Cells Counted 100 Neutrophils % (Manual) 63 % Band Neutrophils % 21 % Lymphocytes % 15 % Monocytes % 1 % Neutrophils # (Manual) 1.5 TH/MM3 Differential Comment FINAL DIFF MANUAL Platelet Estimate RARE Platelet Morphology Comment ENLARGED Ovalocytes 1+ Erythrocyte Sedimentation Rate GREATER THAN 140 mm/hr Blood Urea Nitrogen 27 MG/DL Creatinine 1.21 MG/DL Random Glucose 164 MG/DL Total Protein 8.3 GM/DL Albumin 2.9 GM/DL Calcium Level 8.0 MG/DL Alkaline Phosphatase 60 U/L Aspartate Amino Transf (AST/SGOT) 16 U/L Alanine Aminotransferase (ALT/SGPT) 22 U/L Lactate Dehydrogenase 248 U/L Total Bilirubin 0.4 MG/DL Sodium Level 142 MEQ/L Potassium Level 4.1 MEQ/L Chloride Level 107 MEQ/L Carbon Dioxide Level 25.7 MEQ/L Anion Gap 9 MEQ/L Estimat Glomerular Filtration Rate 43 ML/MIN C-Reactive Protein 0.51 MG/DL Culture Results Microbiology Date/Time Source Procedure Growth Status 08/05/17 23:50 Blood Other Gram Stain - Final Complete Administered Medications Medications (Trade) Dose Ordered Sig/Brendan Route PRN Reason Start Time Stop Time Status Last Admin Dose Admin Sodium Chloride (NS Flush) 2 ml BID IV FLUSH 08/05/17 21:00 08/06/17 22:02 Senna/Docusate Sodium (Alyssa-Colace) 1 tab BID PO 08/05/17 21:00 08/07/17 08:26 Prednisone (Deltasone) 70 mg DAILY@2100 PO 08/05/17 21:00 08/06/17 21:56 Amiodarone HCl (Cordarone) 200 mg BID PO 08/06/17 09:00 08/07/17 08:26 Losartan Potassium (Cozaar) 50 mg BID PO 08/06/17 09:00 08/07/17 08:26 Acetaminophen (Tylenol) 650 mg Q4H PRN PO SEE LABEL COMMENTS 08/06/17 10:30 08/07/17 08:28 Diphenhydramine HCl (Benadryl) 25 mg Q4H PRN PO SEE LABEL COMMENTS 08/06/17 10:30 08/06/17 10:59 Dextrose 1,000 ml @ 30 mls/hr Q24H IV 08/06/17 19:30 08/06/17 20:30 Immune Globulin 70 gm/Syringe / Bag 700 ml @ 20.37 mls/ hr Q24H IV 08/07/17 05:00 08/08/17 04:59 08/07/17 06:13 Dextrose 500 ml @ 30 mls/hr Q24H OTHER 08/07/17 05:00 08/07/17 21:39 08/07/17 06:13 Amlodipine Besylate (Norvasc) 10 mg DAILY PO 08/07/17 09:45 08/07/17 10:11 Objective Remarks GENERAL: Older female, resting in bed in no acute distress SKIN: Warm and dry. HEAD: Normocephalic. EYES: No injection or drainage. NECK: Supple, trachea midline. CARDIOVASCULAR: Regular rate and rhythm. Soft 2/6 systolic murmur RESPIRATORY: Clear anteriorly. Breathing unlabored. GASTROINTESTINAL: Abdomen soft, non-tender, nondistended. EXTREMITIES: No cyanosis. Purpura noted to upper and lower extremities MUSCULOSKELETAL: Adequate muscle tone. NEUROLOGICAL: No obvious focal deficit. Awake, alert, and oriented x3. Assessment/Plan Problem List: (1) Pancytopenia ICD Codes: D61.818 - Other pancytopenia Plan: --had recent recovery from a upper respiratory illness. --was given steroids + ciprofloxacin. --denies recent hospital admission containing heparin blood products. Coags are within normal limits. She has no early cells on --on admission had leukopenia and anemia which were approximately stable from her blast last values that were approximately 1 year ago. However 08/06 WBC counts fell to less than 1000. --given IVIG and steriods 1mg/kg for suspicion of ITP-started on 08/05 --bone marrow biopsy March of 2017 showed no evidence of marrow involved by clinical plasma cell population. Normocellular marrow for age, 20-30% with maturing trilineage hematopoiesis. Comment section indicates several small irregular lymphoid aggregates are present on the core biopsies; the clinical significance of this finding in his undetermined. --LDH elevated, haptoglobin low, but bilirubin is WNL --pathologist review of smear shows no major schistocytes Assessment 77-year-old female admitted with petechiae, purpura and epistaxis. Hematology following for pancytopenia. history of uterine cancer in 2006 -->underwent a hysterectomy, did not receive any chemotherapy or radiation therapy. --recently seen by vamp maker and is status post endoscopy and colonoscopy which per report were unrevealing. has lost approximately 60 pounds unintentionally over the past several months. h/o Leukopenia. Anemia. atrial fibrillation. Asthma. Hypertension. Arthritis. Plan 1. Second bag of IVIG continues to infuse 2. Hold any future platelet transfusions unless patient has active bleeding 3. Will check CBC in a.m. to see if there has been any effect from IVIG on platelet count 4. CT chest abdomen pelvis negative for malignancy Attending Statement The exam, history, and the medical decision-making described in the above note were completed with the assistance of the mid-level provider. I reviewed and agree with the findings presented. I attest that I had a [id number] encounter with the patient on the same day, and personally performed and documented my assessment and findings in the medical record.77 yoF with history of chronic leukopenia and anemia admitted with new single digit thrombocytopenia clinical picture that of ITP. second bag of IVIG this morning. Will follow platelet count. Renetta Frank Aug 07, 2017 10:42 Corina Pryor MD Aug 08, 2017 00:33
[2017-08-07] MEDS ORDERED: hydrALAZINE HCL 20 MG/ML VIAL IV PUSH PRN (18:15)
--- NOTE | 2017-08-07 18:17 | HHI.PR ---
Subjective Remarks The patient denies chest pain, shortness of breath. The patient denies melena, hematochezia. Denies abdominal pain, nausea vomiting. Denies dizziness. Objective Vitals Vital Signs Date Time Temp Pulse Resp B/P (MAP) Pulse Ox O2 Delivery O2 Flow Rate FiO2 08/07/17 18:10 172/86 (114) 08/07/17 17:08 97.6 61 18 183/89 (120) 100 08/07/17 11:48 98.0 58 18 157/84 (108) 97 08/07/17 09:16 97.7 56 16 156/82 (106) 96 08/07/17 07:36 97.9 59 18 174/92 (119) 97 08/07/17 07:00 56 08/07/17 06:48 97.7 58 16 151/80 (103) 97 08/07/17 06:29 97.8 52 16 152/77 (102) 95 08/07/17 06:13 58 16 142/80 08/07/17 05:59 97.9 16 142/80 (100) 97 08/07/17 04:36 97.8 63 16 138/70 (92) 98 08/07/17 04:00 55 08/07/17 00:20 98.8 61 16 158/82 (107) 97 08/07/17 00:09 54 08/06/17 22:10 57 08/06/17 20:22 98.2 59 18 149/72 (97) 97 I/O 08/06/17 08/06/17 08/06/17 08/07/17 08/07/17 08/07/17 07:00 15:00 23:00 07:00 15:00 23:00 Intake Total 240 ml 226 ml 800 ml 500 ml Output Total 400 ml Balance 240 ml 226 ml 800 ml 100 ml Intake Oral 240 ml 200 ml IV Total 600 ml 500 ml Platelets 222 ml Blood Product IV Normal Saline Flush 4 ml Output Urine Total 400 ml # Voids 3 2 Result Diagram: 08/07/17 0811 08/07/17 0811 Imaging Last Impressions Liver Ultrasound 08/06/17 0000 Signed Impressions: Service Date/Time: Sunday, August 06, 2017 09:13 - CONCLUSION: 1. Status post cholecystectomy with slight prominence of the common bile duct. This is a common finding following cholecystectomy and generally secondary to reservoir effect. 2. Mild prominence of the right renal collecting system. Sergio Payne MD Head CT 08/06/17 0000 Signed Impressions: Service Date/Time: Sunday, August 06, 2017 20:35 - CONCLUSION: 1. Age-appropriate atrophy. 2. No acute findings. No evidence of acute hemorrhage. Ulises Freire MD Chest CT 08/06/17 0000 Signed Impressions: Service Date/Time: Sunday, August 06, 2017 14:08 - CONCLUSION: Normal examination, dense coronary atherosclerotic disease. Aaron Churchill MD Abdomen/Pelvis CT 08/06/17 0000 Signed Impressions: Service Date/Time: Sunday, August 06, 2017 14:08 - CONCLUSION: Normal examination. Aaron Churchill MD Objective Remarks GENERAL: Resting comfortably. SKIN: Multiple purpura on bilateral upper extremities, a few scattered lesions on the chest and back, and in the patient's mouth. Bilateral lower extremity petechiae present. HEAD: Atraumatic. Normocephalic. No temporal or scalp tenderness. EYES: Pupils equal round and reactive. Extraocular motions intact. No scleral icterus. No injection or drainage. ENT: Nose without bleeding, purulent drainage or septal hematoma. Throat without erythema, tonsillar hypertrophy or exudate. Uvula midline. Airway patent. NECK: Trachea midline. No JVD or lymphadenopathy. Supple, nontender, no meningeal signs. CARDIOVASCULAR: Regular rate and rhythm without murmurs, gallops, or rubs. RESPIRATORY: Clear to auscultation. Breath sounds equal bilaterally. No wheezes , rales, or rhonchi. GASTROINTESTINAL: Abdomen soft, non-tender, nondistended. No hepato-splenomegaly , or palpable masses. No guarding. MUSCULOSKELETAL: Extremities without clubbing, cyanosis, or edema. No joint tenderness, effusion, or edema noted. No calf tenderness. NEUROLOGICAL: Awake and alert. Cranial nerves II through XII intact. Motor and sensory grossly within normal limits. Normal speech. PSYCH: Mood and affect appropriate Medications and IVs Current Medications Medications (Trade) Dose Ordered Sig/Brendan Route Start Time Stop Time Status Last Admin (NS Flush) 2 ml UNSCH PRN IV FLUSH 08/05/17 18:15 (NS Flush) 2 ml BID IV FLUSH 08/05/17 21:00 08/06/17 22:02 (Tylenol) 650 mg Q4H PRN PO 08/05/17 18:15 (Zofran Inj) 4 mg Q6H PRN IVP 08/05/17 18:15 (Narcan Inj) 0.4 mg UNSCH PRN IV PUSH 08/05/17 18:15 (Alyssa-Colace) 1 tab BID PO 08/05/17 21:00 08/07/17 08:26 (Milk Of Magnesia Liq) 30 ml Q12H PRN PO 08/05/17 18:15 (Senokot) 17.2 mg Q12H PRN PO 08/05/17 18:15 (Dulcolax Supp) 10 mg DAILY PRN RECTAL 08/05/17 18:15 (Lactulose Liq) 30 ml DAILY PRN PO 08/05/17 18:15 (Deltasone) 70 mg DAILY@2100 PO 08/05/17 21:00 08/06/17 21:56 (Cordarone) 200 mg BID PO 08/06/17 09:00 08/07/17 08:26 (Cozaar) 50 mg BID PO 08/06/17 09:00 08/07/17 08:26 (Tylenol) 650 mg Q4H PRN PO 08/06/17 10:30 08/07/17 08:28 (Benadryl) 25 mg Q4H PRN PO 08/06/17 10:30 08/06/17 10:59 Dextrose 1,000 ml @ 30 mls/hr Q24H IV 08/06/17 19:30 08/06/17 20:30 Immune Globulin 70 gm/Syringe / Bag 700 ml @ 20.37 mls/ hr Q24H IV 08/07/17 05:00 08/08/17 04:59 08/07/17 06:13 Dextrose 500 ml @ 30 mls/hr Q24H OTHER 08/07/17 05:00 08/07/17 21:39 08/07/17 06:13 (Benadryl Inj) 50 mg UNSCH PRN IV PUSH 08/06/17 20:00 08/09/17 23:59 (Adrenalin (1:1000) Inj) 0.3 mg Q10M PRN OTHER 08/06/17 20:00 08/09/17 23:59 (Norvasc) 10 mg DAILY PO 08/07/17 09:45 08/07/17 10:11 Urinary Catheter: No Vascular Central Line Catheter: No A/P Problem List: (1) Pancytopenia ICD Code: D61.818 - Other pancytopenia Plan: The patient was admitted to the oncology floor. Initially suspected ITP from a recent director infection that the patient was given steroids and ciprofloxacin. The patient denied any admission containing heparin blood products. Wheeler are within normal limits. No early cells observed on CBC. On admission had leukopenia and anemia which were stable from her last values one year ago. However on 07/31 WBC count felt lower than 1000. The patient had been started on IVIG and steroids 1 g/kg gram for suspicion of ITP which was started and 08/05. Continue IVIG as per hematology recommendations. No platelet transfusions unless the patient has active bleeding. CT of the abdomen and pelvis negative for malignancy. 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 (3) AL (acute kidney injury) ICD Code: N17.9 - Acute kidney failure, unspecified Status: Acute Plan: Unfortunately we do not have any older labs to compare with. Creatinine is worsening with a rise to 1.2 from 1.0. And Brittaney to monitor BUN/creatinine, strict I's and O's, encourage oral fluid intake. (4) Hyperglycemia ICD Code: R73.9 - Hyperglycemia, unspecified Status: Acute Plan: Likely steroid induced. I will start the patient on SSI with insulin NovoLog and monitor Accu-Cheks given that the blood sugars has rise up to 179. Check hemoglobin A1c to rule out prediabetes or diabetes. Assessment and Plan DVT prophylaxis: Continue SCDs. Chemoprophylaxis contraindicated due to the degree of the thrombocytopenia and ITP. Discharge Planning Continue to monitor in the medical floor. Discharge pending clinical improvement, improvement of platelets and resolution of ectopy. Will need oncology clearance. Gerber Painter MD Aug 07, 2017 18:17
[2017-08-07] MEDS: DEXTROSE 5% IN WATE 1000ML INJ 1,000 ML IV SCH (19:30)
[2017-08-07] MEDS: predniSONE 10 MG TAB PO SCH (21:18)
[2017-08-08] VITALS (9 sets, daily range): BP systolic 124–166; BP diastolic 59–85; PULSE 64–70; RESP 14–17; TEMP 97.3–98.6; O2SAT 91–98
[2017-08-08 06:19] LABS: AUTOMATED NEUTROPHIL # 1.8 TH/MM3 (1.8-7.7); BASOPHIL % 0.1 % (0.0-2.0); EOSINOPHIL % 0.1 % (0.0-4.0); HEMATOCRIT 28.8 % (35.0-46.0); LYMPH % 12.5 % (9.0-44.0); LYMPHOCYTE # 0.3 TH/MM3 (1.0-4.8); MEAN CORPUSCULAR HEMOGLOBIN 33.9 PG (27.0-34.0); MEAN CORPUSCULAR HGB CONC 34.6 % (32.0-36.0); MONO % 1.8 % (0.0-8.0); NEUT % 85.5 % (16.0-70.0); RED BLOOD COUNT 2.94 MIL/MM3 (4.00-5.30); RED CELL DISTRIBUTION WIDTH 13.6 % (11.6-17.2); WHITE BLOOD COUNT 2.2 TH/MM3 (4.0-11.0)
[2017-08-08 06:32] LABS: HEMO FLAGS AUTO DIFF
[2017-08-08 06:37] LABS: PLATELET COUNT 14 TH/MM3 (150-450)
[2017-08-08 06:57] LABS: ALT (GPT) 20 U/L (10-53); ANION GAP 7 MEQ/L (5-15); AST (GOT) 12 U/L (15-37); BICARBONATE 24.7 MEQ/L (21.0-32.0); BLOOD UREA NITROGEN 30 MG/DL (7-18); CHLORIDE 106 MEQ/L (98-107); GLOMERULAR FILTRATION RATE 48 ML/MIN (>89); SODIUM (NA) 138 MEQ/L (136-145)
[2017-08-08 06:59] LABS: ALKALINE PHOSPHATASE 57 U/L (45-117); TOTAL BILIRUBIN ADULT 0.4 MG/DL (0.2-1.0)
[2017-08-08] MEDS: DEXTROSE 5% IN WATE 1000ML INJ 1,000 ML IV SCH (07:36)
[2017-08-08] MEDS: ACETAMINOPHEN 325 MG TAB PO PRN ×2 (07:39→17:49)
[2017-08-08] MEDS: ONDANSETRON HCL 4 MG/2 ML VIAL IVP PRN ×2 (07:39→21:10)
[2017-08-08 07:44] LABS: ROULEAUX PRESENT (NORMAL)
[2017-08-08 07:45] LABS: PLATELET ESTIMATE SMEAR RARE (NORMAL); PLATELET MORPHOLOGY ENLARGED (NORMAL); SCAN/DIFF AUTO DIFF CONFIRMED
[2017-08-08] MEDS: DOCUSATE SODIUM 50 MG/SENNA 8.6 MG TAB PO SCH ×2 (10:51→21:02)
[2017-08-08] MEDS: AMIODARONE 200 MG TAB PO SCH ×2 (10:51→21:02)
[2017-08-08] MEDS: SODIUM CHLORIDE 0.9% FLUSH 10 ML FLUSH IV FLUSH SCH ×2 (10:52→21:03)
[2017-08-08] MEDS: LOSARTAN 50 MG TAB PO SCH ×2 (10:52→21:02)
--- NOTE | 2017-08-08 14:21 | HHI.PR ---
Subjective Remarks bp elevated. Denies melena or hematochezia. Denies chest pain, short of breath, abdominal pain, nausea vomiting. Objective Vitals Vital Signs Date Time Temp Pulse Resp B/P (MAP) Pulse Ox O2 Delivery O2 Flow Rate FiO2 08/08/17 12:54 97.5 66 14 166/85 (112) 08/08/17 10:54 97.6 66 14 150/73 (98) 98 08/08/17 05:08 97.8 70 16 157/79 (105) 98 08/08/17 00:15 97.8 70 16 155/74 (101) 98 08/07/17 23:10 68 08/07/17 20:02 60 08/07/17 19:39 97.9 61 19 160/80 (106) 100 08/07/17 18:10 172/86 (114) 08/07/17 17:08 97.6 61 18 183/89 (120) 100 I/O 08/07/17 08/07/17 08/07/17 08/08/17 08/08/17 08/08/17 06:59 14:59 22:59 06:59 14:59 22:59 Intake Total 500 ml 938 ml Output Total 400 ml 300 ml Balance 100 ml 638 ml IV Total 500 ml 938 ml Output Urine Total 400 ml 300 ml # Voids 1 1 Result Diagram: 08/08/17 0530 08/08/17 0530 Imaging Last Impressions Liver Ultrasound 08/06/17 0000 Signed Impressions: Service Date/Time: Sunday, August 06, 2017 09:13 - CONCLUSION: 1. Status post cholecystectomy with slight prominence of the common bile duct. This is a common finding following cholecystectomy and generally secondary to reservoir effect. 2. Mild prominence of the right renal collecting system. Sergio Payne MD Head CT 08/06/17 0000 Signed Impressions: Service Date/Time: Sunday, August 06, 2017 20:35 - CONCLUSION: 1. Age-appropriate atrophy. 2. No acute findings. No evidence of acute hemorrhage. Ulises Freire MD Chest CT 08/06/17 0000 Signed Impressions: Service Date/Time: Sunday, August 06, 2017 14:08 - CONCLUSION: Normal examination, dense coronary atherosclerotic disease. Aaron Churchill MD Abdomen/Pelvis CT 08/06/17 0000 Signed Impressions: Service Date/Time: Sunday, August 06, 2017 14:08 - CONCLUSION: Normal examination. Aaron Churchill MD Objective Remarks GENERAL: Resting comfortably. SKIN: Multiple purpura on bilateral upper extremities, a few scattered lesions on the chest and back, and in the patient's mouth. Bilateral lower extremity petechiae present. HEAD: Atraumatic. Normocephalic. No temporal or scalp tenderness. EYES: Pupils equal round and reactive. Extraocular motions intact. No scleral icterus. No injection or drainage. ENT: Nose without bleeding, purulent drainage or septal hematoma. Throat without erythema, tonsillar hypertrophy or exudate. Uvula midline. Airway patent. NECK: Trachea midline. No JVD or lymphadenopathy. Supple, nontender, no meningeal signs. CARDIOVASCULAR: Regular rate and rhythm without murmurs, gallops, or rubs. RESPIRATORY: Clear to auscultation. Breath sounds equal bilaterally. No wheezes , rales, or rhonchi. GASTROINTESTINAL: Abdomen soft, non-tender, nondistended. No hepato-splenomegaly , or palpable masses. No guarding. MUSCULOSKELETAL: Extremities without clubbing, cyanosis, or edema. No joint tenderness, effusion, or edema noted. No calf tenderness. NEUROLOGICAL: Awake and alert. Cranial nerves II through XII intact. Motor and sensory grossly within normal limits. Normal speech. PSYCH: Mood and affect appropriate Medications and IVs Current Medications Medications (Trade) Dose Ordered Sig/Brendan Route Start Time Stop Time Status Last Admin (NS Flush) 2 ml UNSCH PRN IV FLUSH 08/05/17 18:15 (NS Flush) 2 ml BID IV FLUSH 08/05/17 21:00 08/08/17 10:52 (Tylenol) 650 mg Q4H PRN PO 08/05/17 18:15 08/08/17 07:39 (Zofran Inj) 4 mg Q6H PRN IVP 08/05/17 18:15 08/08/17 07:39 (Narcan Inj) 0.4 mg UNSCH PRN IV PUSH 08/05/17 18:15 (Alyssa-Colace) 1 tab BID PO 08/05/17 21:00 08/08/17 10:51 (Milk Of Magnesia Liq) 30 ml Q12H PRN PO 08/05/17 18:15 (Senokot) 17.2 mg Q12H PRN PO 08/05/17 18:15 (Dulcolax Supp) 10 mg DAILY PRN RECTAL 08/05/17 18:15 (Lactulose Liq) 30 ml DAILY PRN PO 08/05/17 18:15 (Deltasone) 70 mg DAILY@2100 PO 08/05/17 21:00 08/07/17 21:18 (Cordarone) 200 mg BID PO 08/06/17 09:00 08/08/17 10:51 (Cozaar) 50 mg BID PO 08/06/17 09:00 08/08/17 10:52 (Tylenol) 650 mg Q4H PRN PO 08/06/17 10:30 08/07/17 08:28 (Benadryl) 25 mg Q4H PRN PO 08/06/17 10:30 08/06/17 10:59 Dextrose 1,000 ml @ 30 mls/hr Q24H IV 08/06/17 19:30 08/08/17 07:36 (Benadryl Inj) 50 mg UNSCH PRN IV PUSH 08/06/17 20:00 08/09/17 23:59 (Adrenalin (1:1000) Inj) 0.3 mg Q10M PRN OTHER 08/06/17 20:00 08/09/17 23:59 (Norvasc) 10 mg DAILY PO 08/07/17 09:45 08/08/17 10:52 (Apresoline Inj) 10 mg Q30M PRN IV PUSH 08/07/17 18:15 A/P Problem List: (1) Pancytopenia ICD Code: D61.818 - Other pancytopenia Plan: The patient was admitted to the oncology floor. Initially suspected ITP from a recent director infection that the patient was given steroids and ciprofloxacin. The patient denied any admission containing heparin blood products. Wheeler are within normal limits. No early cells observed on CBC. On admission had leukopenia and anemia which were stable from her last values one year ago. However on 07/31 WBC count felt lower than 1000. The patient had been started on IVIG and steroids 1 mg/kg gram for suspicion of ITP which was started and 08/05. Continue IVIG as per hematology recommendations. No platelet transfusions unless the patient has active bleeding. CT of the abdomen and pelvis negative for malignancy. 08/08 WBC and platelets trending up at 2.2/14 K respectively, hemoglobin stable at 10. Platelets increased to 14K from 6k. Continue prednisone and IVIG as per hematology recommendations. 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 On oral prednisone and IVIG - management as per hematology. (3) AL (acute kidney injury) ICD Code: N17.9 - Acute kidney failure, unspecified Status: Acute Plan: Unfortunately we do not have any older labs to compare with. And Brittaney to monitor BUN/creatinine, strict I's and O's, encourage oral fluid intake. Creatinine is stable and back to 0.9. Possible ckd III. (4) Hyperglycemia ICD Code: R73.9 - Hyperglycemia, unspecified Status: Acute Plan: Likely steroid induced. I will start the patient on SSI with insulin NovoLog and monitor Accu-Cheks given that the blood sugars has rise up to 179. Check hemoglobin A1c to rule out prediabetes or diabetes. (5) HTN (hypertension) ICD Code: I10 - Essential (primary) hypertension Status: Chronic Plan: Blood pressure seems to be uncontrolled today. Systolic blood pressure up to the 160s. Continue home losartan which initially had been continued however upon review of med rec it showed that a certain was only given once. I will resume certain at 50 minutes by mouth twice a day. Continue amlodipine 10 minutes by mouth daily. Ordered Cardura 2 mg by mouth daily earlier today. However given that I will resume losartan I will hold Cardura. Assessment and Plan DVT prophylaxis: Continue SCDs. Chemoprophylaxis contraindicated due to the degree of the thrombocytopenia and ITP. Discharge Planning Continue to monitor in the medical floor. Discharge pending clinical improvement, improvement of platelets and resolution of ectopy. Will need oncology clearance. Problem Qualifiers (1) HTN (hypertension): Qualified Codes: I10 - Essential (primary) hypertension Gerber Painter MD Aug 08, 2017 14:21
[2017-08-08] MEDS ORDERED: DEXTROSE 50% IN WATER 50 ML VIAL(D50) IV PUSH PRN (14:30)
[2017-08-08] MEDS ORDERED: DOXAZOSIN MESYLATE 2 MG TAB PO ONE (14:30)
[2017-08-08] MEDS ORDERED: GLUCAGON 1 MG/ML VIAL OTHER PRN (14:30)
[2017-08-08 16:20] LABS: HEMOGLOBIN A1a 0.9 %; HEMOGLOBIN A1b 1.7 %; HEMOGLOBIN Ao 84.5 %; HEMOGLOBIN LA1C 2.5 %; HEMOGLOBIN P3 4.3 %
[2017-08-08] MEDS: INSULIN ASPART SUPPLEMENTAL SCALE SQ SCH ×2 (17:00→21:04)
[2017-08-08] MEDS: predniSONE 10 MG TAB PO SCH (21:02)
--- NOTE | 2017-08-08 23:46 | PD.ONC.PN ---
Subjective Subjective Remarks Resting comfortably in bed in no distress. Objective Data Date Time Temp Pulse Resp B/P (MAP) Pulse Ox O2 Delivery O2 Flow Rate FiO2 08/08/17 20:55 98.6 69 17 124/59 (80) 98 08/08/17 18:49 16 08/08/17 17:41 97.3 65 157/85 (109) 91 08/08/17 12:54 97.5 66 14 166/85 (112) 08/08/17 10:54 97.6 66 14 150/73 (98) 98 08/08/17 08:00 66 08/08/17 05:08 97.8 70 16 157/79 (105) 98 08/08/17 00:15 97.8 70 16 155/74 (101) 98 Result Diagram: 08/08/17 0530 08/08/17 0530 Laboratory Results Laboratory Tests Test 08/08/17 05:30 08/08/17 15:42 White Blood Count 2.2 TH/MM3 Red Blood Count 2.94 MIL/MM3 Hemoglobin 10.0 GM/DL Hematocrit 28.8 % Mean Corpuscular Volume 98.0 FL Mean Corpuscular Hemoglobin 33.9 PG Mean Corpuscular Hemoglobin Concent 34.6 % Red Cell Distribution Width 13.6 % Platelet Count 14 TH/MM3 Mean Platelet Volume 10.9 FL Neutrophils (%) (Auto) 85.5 % Lymphocytes (%) (Auto) 12.5 % Monocytes (%) (Auto) 1.8 % Eosinophils (%) (Auto) 0.1 % Basophils (%) (Auto) 0.1 % Neutrophils # (Auto) 1.8 TH/MM3 Lymphocytes # (Auto) 0.3 TH/MM3 Monocytes # (Auto) 0.0 TH/MM3 Eosinophils # (Auto) 0.0 TH/MM3 Basophils # (Auto) 0.0 TH/MM3 CBC Comment AUTO DIFF Differential Comment AUTO DIFF CONFIRMED Platelet Estimate RARE Platelet Morphology Comment ENLARGED Rouleau PRESENT Blood Urea Nitrogen 30 MG/DL Creatinine 1.09 MG/DL Random Glucose 167 MG/DL Total Protein 9.5 GM/DL Albumin 2.8 GM/DL Calcium Level 8.5 MG/DL Alkaline Phosphatase 57 U/L Aspartate Amino Transf (AST/SGOT) 12 U/L Alanine Aminotransferase (ALT/SGPT) 20 U/L Total Bilirubin 0.4 MG/DL Sodium Level 138 MEQ/L Potassium Level 4.0 MEQ/L Chloride Level 106 MEQ/L Carbon Dioxide Level 24.7 MEQ/L Anion Gap 7 MEQ/L Estimat Glomerular Filtration Rate 48 ML/MIN Hemoglobin A1c 5.8 % Culture Results Microbiology Date/Time Source Procedure Growth Status 08/05/17 23:50 Blood Other Gram Stain - Final Complete Administered Medications Medications (Trade) Dose Ordered Sig/Brendan Route PRN Reason Start Time Stop Time Status Last Admin Dose Admin Sodium Chloride (NS Flush) 2 ml BID IV FLUSH 08/05/17 21:00 08/08/17 21:03 Acetaminophen (Tylenol) 650 mg Q4H PRN PO TEMP > 100.4 08/05/17 18:15 08/08/17 17:49 Ondansetron HCl (Zofran Inj) 4 mg Q6H PRN IVP NAUSEA OR VOMITING 08/05/17 18:15 08/08/17 21:10 Senna/Docusate Sodium (Alyssa-Colace) 1 tab BID PO 08/05/17 21:00 08/08/17 21:02 Prednisone (Deltasone) 70 mg DAILY@2100 PO 08/05/17 21:00 08/08/17 21:02 Amiodarone HCl (Cordarone) 200 mg BID PO 08/06/17 09:00 08/08/17 21:02 Losartan Potassium (Cozaar) 50 mg BID PO 08/06/17 09:00 08/08/17 21:02 Acetaminophen (Tylenol) 650 mg Q4H PRN PO SEE LABEL COMMENTS 08/06/17 10:30 08/07/17 08:28 Diphenhydramine HCl (Benadryl) 25 mg Q4H PRN PO SEE LABEL COMMENTS 08/06/17 10:30 08/06/17 10:59 Dextrose 1,000 ml @ 30 mls/hr Q24H IV 08/06/17 19:30 08/08/17 07:36 Amlodipine Besylate (Norvasc) 10 mg DAILY PO 08/07/17 09:45 08/08/17 10:52 Objective Remarks GENERAL: Well-nourished, well-developed patient. SKIN: Warm and dry, healing purpura HEAD: Normocephalic. EYES: No scleral icterus. No injection or drainage. NECK: Supple, trachea midline. No JVD or lymphadenopathy. LYMPHATIC: No adenopathy. CARDIOVASCULAR: Regular rate and rhythm without murmurs. RESPIRATORY: Breath sounds equal bilaterally. No accessory muscle use. GASTROINTESTINAL: Abdomen soft, non-tender, nondistended. EXTREMITIES: No cyanosis, or edema. MUSCULOSKELETAL: Adequate muscle tone. NEUROLOGICAL: No obvious focal deficit. Awake, alert, and oriented x3. PSYCHIATRIC: Appropriate mood and affect; insight and judgment normal. Assessment/Plan Problem List: (1) Pancytopenia ICD Codes: D61.818 - Other pancytopenia Plan: --had recent recovery from a upper respiratory illness. --was given steroids + ciprofloxacin. --denies recent hospital admission containing heparin blood products. Coags are within normal limits. She has no early cells on --on admission had leukopenia and anemia which were approximately stable from her blast last values that were approximately 1 year ago. However 08/06 WBC counts fell to less than 1000. --given IVIG and steriods 1mg/kg for suspicion of ITP-started on 08/05 --bone marrow biopsy March of 2017 showed no evidence of marrow involved by clinical plasma cell population. Normocellular marrow for age, 20-30% with maturing trilineage hematopoiesis. Comment section indicates several small irregular lymphoid aggregates are present on the core biopsies; the clinical significance of this finding in his undetermined. --LDH elevated, haptoglobin low, but bilirubin is WNL --pathologist review of smear shows no major schistocytes Assessment 1. Thrombocytopenia: ITP. on prednisone and s/p 2 doses of IVIG. Improving counts and improving skin manifestations. Continue to follow counts. 2. History of anemia and leukopenia: followed with outside electrical wirer bone marrow from 03/2017 negative. Corina Owen MD Aug 08, 2017 23:46
[2017-08-09] VITALS (7 sets, daily range): BP systolic 107–131; BP diastolic 53–70; PULSE 63–87; RESP 16–19; TEMP 97.6–98.5; O2SAT 96–100
[2017-08-09] MEDS: SODIUM CHLORIDE 0.9% FLUSH 10 ML FLUSH IV FLUSH SCH ×2 (09:00→20:45)
[2017-08-09 09:40] LABS: AUTOMATED NEUTROPHIL # 1.3 TH/MM3 (1.8-7.7); BASOPHIL % 0.1 % (0.0-2.0); HEMATOCRIT 30.2 % (35.0-46.0); LYMPHOCYTE # 0.2 TH/MM3 (1.0-4.8); MEAN CELL VOLUME 98.5 FL (80.0-100.0); MEAN CORPUSCULAR HEMOGLOBIN 34.7 PG (27.0-34.0); MEAN CORPUSCULAR HGB CONC 35.2 % (32.0-36.0); MONO % 2.5 % (0.0-8.0); NEUT % 82.4 % (16.0-70.0); PLATELET COUNT 36 TH/MM3 (150-450); RED BLOOD COUNT 3.06 MIL/MM3 (4.00-5.30); RED CELL DISTRIBUTION WIDTH 13.7 % (11.6-17.2); WHITE BLOOD COUNT 1.6 TH/MM3 (4.0-11.0)
[2017-08-09 09:42] LABS: HEMO FLAGS AUTO DIFF
[2017-08-09] MEDS: DOCUSATE SODIUM 50 MG/SENNA 8.6 MG TAB PO SCH ×2 (09:53→20:44)
[2017-08-09] MEDS: LOSARTAN 50 MG TAB PO SCH ×2 (09:53→20:43)
[2017-08-09] MEDS: INSULIN ASPART SUPPLEMENTAL SCALE SQ SCH ×4 (09:53→20:41)
[2017-08-09] MEDS: AMIODARONE 200 MG TAB PO SCH ×2 (09:54→20:43)
[2017-08-09] MEDS: ACETAMINOPHEN 325 MG TAB PO PRN (09:54)
[2017-08-09] MEDS: DOXAZOSIN MESYLATE 2 MG TAB PO SCH (09:55)
[2017-08-09 10:15] LABS: ALKALINE PHOSPHATASE 57 U/L (45-117); ALT (GPT) 20 U/L (10-53); ANION GAP 4 MEQ/L (5-15); AST (GOT) 15 U/L (15-37); BLOOD UREA NITROGEN 29 MG/DL (7-18); CHLORIDE 104 MEQ/L (98-107); GLOMERULAR FILTRATION RATE 44 ML/MIN (>89); SODIUM (NA) 135 MEQ/L (136-145); TOTAL BILIRUBIN ADULT 0.4 MG/DL (0.2-1.0)
[2017-08-09 10:18] LABS: NEUTROPHIL # MANUAL DIFF 1.5 TH/MM3 (1.8-7.7); POLYS (SEG NEUTROPHILS) 95 % (16-70); WBC DIFF SAMPLE 100
[2017-08-09 10:19] LABS: PLATELET ESTIMATE SMEAR LOW (NORMAL); PLATELET MORPHOLOGY ENLARGED (NORMAL)
[2017-08-09 10:20] LABS: SCAN/DIFF FINAL DIFF MANUAL
--- NOTE | 2017-08-09 13:32 | PD.ONC.PN ---
Subjective Subjective Remarks Afebrile overnight. Patient resting in bed in nad. No bleeding. Bruising improving. Objective Data Date Time Temp Pulse Resp B/P (MAP) Pulse Ox O2 Delivery O2 Flow Rate FiO2 08/09/17 12:43 97.8 83 18 131/70 (90) 97 08/09/17 04:27 98.5 67 18 119/64 (82) 96 08/09/17 00:35 97.7 63 18 107/53 (71) 97 08/08/17 23:10 67 08/08/17 20:55 98.6 69 17 124/59 (80) 98 08/08/17 20:13 64 08/08/17 18:49 16 08/08/17 17:41 97.3 65 157/85 (109) 91 08/09/17 08/09/17 08/09/17 07:00 15:00 23:00 Intake Total 342 ml 600 ml Output Total 400 ml Balance -58 ml 600 ml Result Diagram: 08/09/17 0910 08/09/17 0910 Laboratory Results Laboratory Tests Test 08/08/17 15:42 08/09/17 09:10 Hemoglobin A1c 5.8 % White Blood Count 1.6 TH/MM3 Red Blood Count 3.06 MIL/MM3 Hemoglobin 10.6 GM/DL Hematocrit 30.2 % Mean Corpuscular Volume 98.5 FL Mean Corpuscular Hemoglobin 34.7 PG Mean Corpuscular Hemoglobin Concent 35.2 % Red Cell Distribution Width 13.7 % Platelet Count 36 TH/MM3 Mean Platelet Volume 11.4 FL Neutrophils (%) (Auto) 82.4 % Lymphocytes (%) (Auto) 15.0 % Monocytes (%) (Auto) 2.5 % Eosinophils (%) (Auto) 0.0 % Basophils (%) (Auto) 0.1 % Neutrophils # (Auto) 1.3 TH/MM3 Lymphocytes # (Auto) 0.2 TH/MM3 Monocytes # (Auto) 0.0 TH/MM3 Eosinophils # (Auto) 0.0 TH/MM3 Basophils # (Auto) 0.0 TH/MM3 CBC Comment AUTO DIFF Differential Total Cells Counted 100 Neutrophils % (Manual) 95 % Lymphocytes % 5 % Neutrophils # (Manual) 1.5 TH/MM3 Differential Comment FINAL DIFF MANUAL Platelet Estimate LOW Platelet Morphology Comment ENLARGED Blood Urea Nitrogen 29 MG/DL Creatinine 1.19 MG/DL Random Glucose 167 MG/DL Total Protein 9.7 GM/DL Albumin 2.9 GM/DL Calcium Level 8.5 MG/DL Alkaline Phosphatase 57 U/L Aspartate Amino Transf (AST/SGOT) 15 U/L Alanine Aminotransferase (ALT/SGPT) 20 U/L Total Bilirubin 0.4 MG/DL Sodium Level 135 MEQ/L Potassium Level 5.0 MEQ/L Chloride Level 104 MEQ/L Carbon Dioxide Level 27.0 MEQ/L Anion Gap 4 MEQ/L Estimat Glomerular Filtration Rate 44 ML/MIN Administered Medications Medications (Trade) Dose Ordered Sig/Brendan Route PRN Reason Start Time Stop Time Status Last Admin Dose Admin Sodium Chloride (NS Flush) 2 ml BID IV FLUSH 08/05/17 21:00 08/08/17 21:03 Acetaminophen (Tylenol) 650 mg Q4H PRN PO TEMP > 100.4 08/05/17 18:15 08/09/17 09:54 Ondansetron HCl (Zofran Inj) 4 mg Q6H PRN IVP NAUSEA OR VOMITING 08/05/17 18:15 08/08/17 21:10 Senna/Docusate Sodium (Alyssa-Colace) 1 tab BID PO 08/05/17 21:00 08/09/17 09:53 Prednisone (Deltasone) 70 mg DAILY@2100 PO 08/05/17 21:00 08/08/17 21:02 Amiodarone HCl (Cordarone) 200 mg BID PO 08/06/17 09:00 08/09/17 09:54 Losartan Potassium (Cozaar) 50 mg BID PO 08/06/17 09:00 08/09/17 09:53 Acetaminophen (Tylenol) 650 mg Q4H PRN PO SEE LABEL COMMENTS 08/06/17 10:30 08/07/17 08:28 Diphenhydramine HCl (Benadryl) 25 mg Q4H PRN PO SEE LABEL COMMENTS 08/06/17 10:30 08/06/17 10:59 Dextrose 1,000 ml @ 30 mls/hr Q24H IV 08/06/17 19:30 08/08/17 07:36 Amlodipine Besylate (Norvasc) 10 mg DAILY PO 08/07/17 09:45 08/09/17 09:54 Doxazosin Mesylate (Cardura) 2 mg DAILY PO 08/09/17 09:00 08/09/17 09:55 Insulin Aspart (NovoLOG SUPPLEMENTAL SCALE) 1 ACHS SLIDING SCALE SQ 08/08/17 17:00 08/09/17 09:53 Objective Remarks GENERAL: Elderly female sitting up in bed in nad. SKIN: Warm and dry. scattered bruising on extremities. HEAD: Normocephalic. EYES: No scleral icterus. No injection or drainage. NECK: Supple, trachea midline. CARDIOVASCULAR: Regular rate and rhythm RESPIRATORY: Breath sounds equal bilaterally. No accessory muscle use. GASTROINTESTINAL: Abdomen soft, non-tender, nondistended. EXTREMITIES: No cyanosis, or edema. MUSCULOSKELETAL: Adequate muscle tone. NEUROLOGICAL: awake and alert, normal speech. Assessment/Plan Problem List: (1) Pancytopenia ICD Codes: D61.818 - Other pancytopenia Plan: --continue steroids. --given IVIG on 08/05, 08/06 --bone marrow biopsy March of 2017 showed no evidence of marrow involved by clinical plasma cell population. Normocellular marrow for age, 20-30% with maturing trilineage hematopoiesis. Comment section indicates several small irregular lymphoid aggregates are present on the core biopsies; the clinical significance of this finding in his undetermined. Assessment 1. Thrombocytopenia: ITP. s/p 2 doses of IVIG. continue steroids. will plan to discharge on steroid taper once platelet count is rising and greater than 30K for two days. This is assuming her neutrophil count remains greater than 1.5 and she is able to procure follow up with her digital commentator next week. We will need someone to monitor her CBC outpatient. She is going to call Dr. Comer today to try to make an appointment for next week. 2. History of anemia and leukopenia: monitor CBC. follows with Dr. Comer outpatient. Plan Attending Statement The exam, history, and the medical decision-making described in the above note were completed with the assistance of the mid-level provider. I reviewed and agree with the findings presented. I attest that I had a [id number] encounter with the patient on the same day, and personally performed and documented my assessment and findings in the medical record. 77 yoF with longstanding leukopenia/anemia admitted with single digit thrombocytopenia with clinical picture of ITP. S/p steroids and IVIG. Improving platelet count. Will follow up count tomorrow. If sustained increased will plan to discharge with close follow up with digital commentator in the outpatient setting. Ena Woodall Aug 09, 2017 13:32 Corina Pryor MD Aug 10, 2017 01:51
--- NOTE | 2017-08-09 17:39 | HHI.PR ---
Subjective Remarks Patient feels well, has no complaints. Denies melena, hematochezia, denies hematuria. Objective Vitals Vital Signs Date Time Temp Pulse Resp B/P (MAP) Pulse Ox O2 Delivery O2 Flow Rate FiO2 08/09/17 17:06 98.2 87 16 123/63 (83) 99 08/09/17 12:43 97.8 83 18 131/70 (90) 97 08/09/17 08:30 85 08/09/17 04:27 98.5 67 18 119/64 (82) 96 08/09/17 00:35 97.7 63 18 107/53 (71) 97 08/08/17 23:10 67 08/08/17 20:55 98.6 69 17 124/59 (80) 98 08/08/17 20:13 64 08/08/17 18:49 16 08/08/17 17:41 97.3 65 157/85 (109) 91 I/O 08/08/17 08/08/17 08/08/17 08/09/17 08/09/17 08/09/17 07:00 15:00 23:00 07:00 15:00 23:00 Intake Total 938 ml 780 ml 342 ml 600 ml Output Total 300 ml 625 ml 400 ml Balance 638 ml 155 ml -58 ml 600 ml Intake Oral 480 ml IV Total 938 ml 300 ml 342 ml 600 ml Output Urine Total 300 ml 625 ml 400 ml # Voids 1 1 Result Diagram: 08/09/17 0910 08/09/17 0910 Imaging Last Impressions Liver Ultrasound 08/06/17 0000 Signed Impressions: Service Date/Time: Sunday, August 06, 2017 09:13 - CONCLUSION: 1. Status post cholecystectomy with slight prominence of the common bile duct. This is a common finding following cholecystectomy and generally secondary to reservoir effect. 2. Mild prominence of the right renal collecting system. Sergio Payne MD Head CT 08/06/17 0000 Signed Impressions: Service Date/Time: Sunday, August 06, 2017 20:35 - CONCLUSION: 1. Age-appropriate atrophy. 2. No acute findings. No evidence of acute hemorrhage. Ulises Freire MD Chest CT 08/06/17 0000 Signed Impressions: Service Date/Time: Sunday, August 06, 2017 14:08 - CONCLUSION: Normal examination, dense coronary atherosclerotic disease. Aaron Churchill MD Abdomen/Pelvis CT 08/06/17 0000 Signed Impressions: Service Date/Time: Sunday, August 06, 2017 14:08 - CONCLUSION: Normal examination. Aaron Churchill MD Objective Remarks GENERAL: Resting comfortably. SKIN: Multiple purpura on bilateral upper extremities, a few scattered lesions on the chest and back, and in the patient's mouth. Bilateral lower extremity petechiae present. HEAD: Atraumatic. Normocephalic. No temporal or scalp tenderness. EYES: Pupils equal round and reactive. Extraocular motions intact. No scleral icterus. No injection or drainage. ENT: Nose without bleeding, purulent drainage or septal hematoma. Throat without erythema, tonsillar hypertrophy or exudate. Uvula midline. Airway patent. NECK: Trachea midline. No JVD or lymphadenopathy. Supple, nontender, no meningeal signs. CARDIOVASCULAR: Regular rate and rhythm without murmurs, gallops, or rubs. RESPIRATORY: Clear to auscultation. Breath sounds equal bilaterally. No wheezes , rales, or rhonchi. GASTROINTESTINAL: Abdomen soft, non-tender, nondistended. No hepato-splenomegaly , or palpable masses. No guarding. MUSCULOSKELETAL: Extremities without clubbing, cyanosis, or edema. No joint tenderness, effusion, or edema noted. No calf tenderness. NEUROLOGICAL: Awake and alert. Cranial nerves II through XII intact. Motor and sensory grossly within normal limits. Normal speech. PSYCH: Mood and affect appropriate Medications and IVs Current Medications Medications (Trade) Dose Ordered Sig/Brendan Route Start Time Stop Time Status Last Admin (NS Flush) 2 ml UNSCH PRN IV FLUSH 08/05/17 18:15 (NS Flush) 2 ml BID IV FLUSH 08/05/17 21:00 08/08/17 21:03 (Tylenol) 650 mg Q4H PRN PO 08/05/17 18:15 08/09/17 09:54 (Zofran Inj) 4 mg Q6H PRN IVP 08/05/17 18:15 08/08/17 21:10 (Narcan Inj) 0.4 mg UNSCH PRN IV PUSH 08/05/17 18:15 (Alyssa-Colace) 1 tab BID PO 08/05/17 21:00 08/09/17 09:53 (Milk Of Magnesia Liq) 30 ml Q12H PRN PO 08/05/17 18:15 (Senokot) 17.2 mg Q12H PRN PO 08/05/17 18:15 (Dulcolax Supp) 10 mg DAILY PRN RECTAL 08/05/17 18:15 (Lactulose Liq) 30 ml DAILY PRN PO 08/05/17 18:15 (Deltasone) 70 mg DAILY@2100 PO 08/05/17 21:00 08/08/17 21:02 (Cordarone) 200 mg BID PO 08/06/17 09:00 08/09/17 09:54 (Cozaar) 50 mg BID PO 08/06/17 09:00 08/09/17 09:53 (Tylenol) 650 mg Q4H PRN PO 08/06/17 10:30 08/07/17 08:28 (Benadryl) 25 mg Q4H PRN PO 08/06/17 10:30 08/06/17 10:59 Dextrose 1,000 ml @ 30 mls/hr Q24H IV 08/06/17 19:30 08/08/17 07:36 (Benadryl Inj) 50 mg UNSCH PRN IV PUSH 08/06/17 20:00 08/09/17 23:59 (Adrenalin (1:1000) Inj) 0.3 mg Q10M PRN OTHER 08/06/17 20:00 08/09/17 23:59 (Norvasc) 10 mg DAILY PO 08/07/17 09:45 08/09/17 09:54 (Apresoline Inj) 10 mg Q30M PRN IV PUSH 08/07/17 18:15 (Cardura) 2 mg DAILY PO 08/09/17 09:00 08/09/17 09:55 (D50w (Vial) Inj) 50 ml UNSCH PRN IV PUSH 08/08/17 14:30 (Glucagon Inj) 1 mg UNSCH PRN OTHER 08/08/17 14:30 (NovoLOG SUPPLEMENTAL SCALE) 1 ACHS SLIDING SCALE SQ 08/08/17 17:00 08/09/17 12:00 A/P Problem List: (1) Pancytopenia ICD Code: D61.818 - Other pancytopenia (2) 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 Initially suspected ITP from a recent director infection that the patient was given steroids and ciprofloxacin. The patient denied any admission containing heparin blood products. Wheeler are within normal limits. No early cells observed on CBC. On admission had leukopenia and anemia which were stable from her last values one year ago. However on 07/31 WBC count felt lower than 1000. The patient had been started on IVIG and steroids 1 mg/kg gram for suspicion of ITP which was started and 08/05. Continue IVIG as per hematology recommendations. No platelet transfusions unless the patient has active bleeding. CT of the abdomen and pelvis negative for malignancy. 08/08 WBC and platelets trending up at 2.2/14 K respectively, hemoglobin stable at 10. Platelets increased to 14K from 6k. Continue prednisone and IVIG as per hematology recommendations. 08/09 Platelets trending up and now 36 k. WBC 1.6. As per oncology recommendations the patient may be discharged after platelets above 30,000 for 2 consecutive days and also taking into account that the patient's neutrophil count remain above 1.5. 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 On oral prednisone and IVIG - management as per hematology. (3) AL (acute kidney injury) ICD Code: N17.9 - Acute kidney failure, unspecified Status: Acute Plan: Unfortunately we do not have any older labs to compare with. And Brittaney to monitor BUN/creatinine, strict I's and O's, encourage oral fluid intake. Creatinine is stable and back to 0.9. Possible ckd III. (4) Hyperglycemia ICD Code: R73.9 - Hyperglycemia, unspecified Status: Acute Plan: Likely steroid induced. I will start the patient on SSI with insulin NovoLog and monitor Accu-Cheks given that the blood sugars has rise up to 179. Check hemoglobin A1c to rule out prediabetes or diabetes. 08/09 patient's hemoglobin is 5.8. The patient has impaired glucose tolerance. Would recommend starting metformin prior to discharge. Blood sugars are stable. Continue SSI with insulin NovoLog and continue to monitor Accu-Cheks. (5) HTN (hypertension) ICD Code: I10 - Essential (primary) hypertension Status: Chronic Plan: Blood pressure seems to be uncontrolled today. Systolic blood pressure up to the 160s. Continue home losartan which initially had been continued however upon review of med rec it showed that a certain was only given once. I will resume Losartan 50 mg by mouth twice a day. Continue amlodipine 10 minutes by mouth daily. Ordered Cardura 2 mg by mouth daily earlier today. However given that I will resume losartan I will hold Cardura.\ 08/09 BP was elevated yesterday even after resuming the patient's losartan 50 mg by mouth twice a day. Cardura started yesterday, now blood pressures much improved. Continue to monitor vital signs. DVT prophylaxis: Continue SCDs. Chemoprophylaxis contraindicated due to the degree of the thrombocytopenia and ITP. Discharge Planning Continue to monitor in the oncology floor. Discharge pending oncology clearance. Problem Qualifiers (1) HTN (hypertension): Qualified Codes: I10 - Essential (primary) hypertension Gerber Painter MD Aug 09, 2017 17:39
[2017-08-09] MEDS: DEXTROSE 5% IN WATE 1000ML INJ 1,000 ML IV SCH (19:30)
[2017-08-09] MEDS: ONDANSETRON HCL 4 MG/2 ML VIAL IVP PRN (20:40)
[2017-08-09] MEDS: predniSONE 10 MG TAB PO SCH (20:40)
[2017-08-10] VITALS (7 sets, daily range): BP systolic 113–138; BP diastolic 54–71; PULSE 61–81; RESP 16–17; TEMP 97.6–98.3; O2SAT 95–99
[2017-08-10 07:14] LABS: AUTOMATED NEUTROPHIL # 1.9 TH/MM3 (1.8-7.7); HEMATOCRIT 28.8 % (35.0-46.0); LYMPH % 11.1 % (9.0-44.0); LYMPHOCYTE # 0.2 TH/MM3 (1.0-4.8); MEAN CELL VOLUME 98.7 FL (80.0-100.0); MEAN CORPUSCULAR HEMOGLOBIN 34.2 PG (27.0-34.0); MEAN CORPUSCULAR HGB CONC 34.7 % (32.0-36.0); MONO % 2.8 % (0.0-8.0); NEUT % 86.1 % (16.0-70.0); PLATELET COUNT 49 TH/MM3 (150-450); RED BLOOD COUNT 2.92 MIL/MM3 (4.00-5.30); RED CELL DISTRIBUTION WIDTH 13.9 % (11.6-17.2); WHITE BLOOD COUNT 2.2 TH/MM3 (4.0-11.0)
[2017-08-10 07:21] LABS: HEMO FLAGS DIFF FINAL
[2017-08-10 07:39] LABS: ALKALINE PHOSPHATASE 50 U/L (45-117); ALT (GPT) 16 U/L (10-53); ANION GAP 5 MEQ/L (5-15); AST (GOT) 9 U/L (15-37); BICARBONATE 25.6 MEQ/L (21.0-32.0); BLOOD UREA NITROGEN 40 MG/DL (7-18); CHLORIDE 106 MEQ/L (98-107); GLOMERULAR FILTRATION RATE 51 ML/MIN (>89); POTASSIUM 4.8 MEQ/L (3.5-5.1); SODIUM (NA) 137 MEQ/L (136-145); TOTAL BILIRUBIN ADULT 0.3 MG/DL (0.2-1.0)
[2017-08-10] MEDS: DOXAZOSIN MESYLATE 2 MG TAB PO SCH (09:02)
[2017-08-10] MEDS: DOCUSATE SODIUM 50 MG/SENNA 8.6 MG TAB PO SCH ×2 (09:02→21:15)
[2017-08-10] MEDS: LOSARTAN 50 MG TAB PO SCH ×2 (09:02→21:15)
[2017-08-10] MEDS: AMIODARONE 200 MG TAB PO SCH ×2 (09:02→21:15)
[2017-08-10] MEDS: SODIUM CHLORIDE 0.9% FLUSH 10 ML FLUSH IV FLUSH SCH ×2 (09:04→21:15)
[2017-08-10] MEDS: INSULIN ASPART SUPPLEMENTAL SCALE SQ SCH ×5 (09:08→23:48)
--- NOTE | 2017-08-10 09:19 | PD.ONC.PN ---
Subjective Subjective Remarks Afebrile overnight. Patient resting in bed in nad. No bleeding. Objective Data Date Time Temp Pulse Resp B/P (MAP) Pulse Ox O2 Delivery O2 Flow Rate FiO2 08/10/17 04:15 98.1 63 17 126/70 (88) 98 08/10/17 00:20 98.1 63 16 121/62 (81) 95 08/09/17 20:33 97.6 70 19 116/58 (77) 100 08/09/17 20:06 73 08/09/17 17:06 98.2 87 16 123/63 (83) 99 08/09/17 12:43 97.8 83 18 131/70 (90) 97 Result Diagram: 08/10/1751908/10/17 0520 Laboratory Results Laboratory Tests Test 08/10/17 05:20 White Blood Count 2.2 TH/MM3 Red Blood Count 2.92 MIL/MM3 Hemoglobin 10.0 GM/DL Hematocrit 28.8 % Mean Corpuscular Volume 98.7 FL Mean Corpuscular Hemoglobin 34.2 PG Mean Corpuscular Hemoglobin Concent 34.7 % Red Cell Distribution Width 13.9 % Platelet Count 49 TH/MM3 Mean Platelet Volume 11.8 FL Neutrophils (%) (Auto) 86.1 % Lymphocytes (%) (Auto) 11.1 % Monocytes (%) (Auto) 2.8 % Eosinophils (%) (Auto) 0.0 % Basophils (%) (Auto) 0.0 % Neutrophils # (Auto) 1.9 TH/MM3 Lymphocytes # (Auto) 0.2 TH/MM3 Monocytes # (Auto) 0.1 TH/MM3 Eosinophils # (Auto) 0.0 TH/MM3 Basophils # (Auto) 0.0 TH/MM3 CBC Comment DIFF FINAL Differential Comment Blood Urea Nitrogen 40 MG/DL Creatinine 1.04 MG/DL Random Glucose 157 MG/DL Total Protein 8.3 GM/DL Albumin 2.7 GM/DL Calcium Level 8.5 MG/DL Alkaline Phosphatase 50 U/L Aspartate Amino Transf (AST/SGOT) 9 U/L Alanine Aminotransferase (ALT/SGPT) 16 U/L Total Bilirubin 0.3 MG/DL Sodium Level 137 MEQ/L Potassium Level 4.8 MEQ/L Chloride Level 106 MEQ/L Carbon Dioxide Level 25.6 MEQ/L Anion Gap 5 MEQ/L Estimat Glomerular Filtration Rate 51 ML/MIN Administered Medications Medications (Trade) Dose Ordered Sig/Brendan Route PRN Reason Start Time Stop Time Status Last Admin Dose Admin Sodium Chloride (NS Flush) 2 ml BID IV FLUSH 08/05/17 21:00 08/10/17 09:04 Acetaminophen (Tylenol) 650 mg Q4H PRN PO TEMP > 100.4 08/05/17 18:15 08/09/17 09:54 Ondansetron HCl (Zofran Inj) 4 mg Q6H PRN IVP NAUSEA OR VOMITING 08/05/17 18:15 08/09/17 20:40 Senna/Docusate Sodium (Alyssa-Colace) 1 tab BID PO 08/05/17 21:00 08/10/17 09:02 Prednisone (Deltasone) 70 mg DAILY@2100 PO 08/05/17 21:00 08/09/17 20:40 Amiodarone HCl (Cordarone) 200 mg BID PO 08/06/17 09:00 08/10/17 09:02 Losartan Potassium (Cozaar) 50 mg BID PO 08/06/17 09:00 08/10/17 09:02 Acetaminophen (Tylenol) 650 mg Q4H PRN PO SEE LABEL COMMENTS 08/06/17 10:30 08/07/17 08:28 Diphenhydramine HCl (Benadryl) 25 mg Q4H PRN PO SEE LABEL COMMENTS 08/06/17 10:30 08/06/17 10:59 Dextrose 1,000 ml @ 30 mls/hr Q24H IV 08/06/17 19:30 08/08/17 07:36 Amlodipine Besylate (Norvasc) 10 mg DAILY PO 08/07/17 09:45 08/10/17 09:02 Doxazosin Mesylate (Cardura) 2 mg DAILY PO 08/09/17 09:00 08/10/17 09:02 Insulin Aspart (NovoLOG SUPPLEMENTAL SCALE) 1 ACHS SLIDING SCALE SQ 08/08/17 17:00 08/10/17 09:08 Objective Remarks GENERAL: Elderly female upright in bed in [facility]. SKIN: Warm and dry. scattered ecchymoses on extremities. HEAD: Normocephalic. EYES: No injection or drainage. NECK: Supple, trachea midline. CARDIOVASCULAR: +S1/S2 RESPIRATORY: Breath sounds equal bilaterally. No accessory muscle use. GASTROINTESTINAL: Abdomen soft, non-tender, nondistended. EXTREMITIES: No cyanosis, or edema. MUSCULOSKELETAL: Adequate muscle tone. NEUROLOGICAL: awake and alert, normal speech. moving all extremities Assessment/Plan Problem List: (1) Pancytopenia ICD Codes: D61.818 - Other pancytopenia Plan: --continue steroids. --given IVIG on 08/05, 08/06 --bone marrow biopsy March of 2017 showed no evidence of marrow involved by clinical plasma cell population. Normocellular marrow for age, 20-30% with maturing trilineage hematopoiesis. Comment section indicates several small irregular lymphoid aggregates are present on the core biopsies; the clinical significance of this finding in his undetermined. Assessment 77y/o female with h/o of pancytopenia, admitted with ITP Plan 1. ITP: continue Prednisone. If platelets continue to rise would discharge tomorrow on prednisone taper. 2. follow up with Dr. Comer, patient's connie scratcher on (patient has appointment) Attending Statement The exam, history, and the medical decision-making described in the above note were completed with the assistance of the mid-level provider. I reviewed and agree with the findings presented. I attest that I had a [id number] encounter with the patient on the same day, and personally performed and documented my assessment and findings in the medical record. doing well and petechiae are less. will continue full dose steroids and plan on tapering steroids as outpatient once the platelets are significantly above current value to try to avoid relapse. Ena Woodall Aug 10, 2017 09:19 Benja Cheng MD Aug 10, 2017 10:06
[2017-08-10] MEDS ORDERED: PRED10 PO (09:58)
--- NOTE | 2017-08-10 16:41 | HHI.PR ---
Subjective Remarks Follow-up acute ITP 08/10/17-patient seen and examined, platelet count trending up, patient denies any chest pain or shortness of breath. He denies any bleeding. No bowel movement 1 day. Headache improved Objective Vitals Vital Signs Date Time Temp Pulse Resp B/P (MAP) Pulse Ox O2 Delivery O2 Flow Rate FiO2 08/10/17 16:01 97.8 61 16 129/67 (87) 98 08/10/17 12:30 97.6 62 16 113/54 (73) 97 08/10/17 08:53 97.6 81 16 138/71 (93) 99 08/10/17 04:15 98.1 63 17 126/70 (88) 98 08/10/17 00:20 98.1 63 16 121/62 (81) 95 08/09/17 20:33 97.6 70 19 116/58 (77) 100 08/09/17 20:06 73 08/09/17 17:06 98.2 87 16 123/63 (83) 99 I/O 08/09/17 08/09/17 08/09/17 08/10/17 08/10/17 08/10/17 07:00 15:00 23:00 07:00 15:00 23:00 Intake Total 342 ml 600 ml 1080 ml Output Total 400 ml Balance -58 ml 600 ml 1080 ml Intake Oral 1080 ml IV Total 342 ml 600 ml Output Urine Total 400 ml # Voids 4 Result Diagram: 08/10/17 0520 08/10/17 0520 Imaging Last Impressions Liver Ultrasound 08/06/17 0000 Signed Impressions: Service Date/Time: Sunday, August 06, 2017 09:13 - CONCLUSION: 1. Status post cholecystectomy with slight prominence of the common bile duct. This is a common finding following cholecystectomy and generally secondary to reservoir effect. 2. Mild prominence of the right renal collecting system. Sergio Payne MD Head CT 08/06/17 0000 Signed Impressions: Service Date/Time: Sunday, August 06, 2017 20:35 - CONCLUSION: 1. Age-appropriate atrophy. 2. No acute findings. No evidence of acute hemorrhage. Ulises Freire MD Chest CT 08/06/17 0000 Signed Impressions: Service Date/Time: Sunday, August 06, 2017 14:08 - CONCLUSION: Normal examination, dense coronary atherosclerotic disease. Aaron Churchill MD Abdomen/Pelvis CT 08/06/17 0000 Signed Impressions: Service Date/Time: Sunday, August 06, 2017 14:08 - CONCLUSION: Normal examination. Aaron Churchill MD Objective Remarks GENERAL: NAD SKIN: Warm and dry. Petechiae to bilateral lower extremities HEAD: Normocephalic. EYES: No scleral icterus. No injection or drainage. NECK: Supple, trachea midline. No JVD or lymphadenopathy. CARDIOVASCULAR: Regular rate and rhythm without murmurs, gallops, or rubs. RESPIRATORY: Breath sounds equal bilaterally. No accessory muscle use. GASTROINTESTINAL: Abdomen soft, non-tender, nondistended. MUSCULOSKELETAL: No cyanosis, or edema. BACK: Nontender without obvious deformity. No CVA tenderness. 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 Likely discharge 08/11/17 AL (acute kidney injury)-stage III chronic kidney disease Monitor BUN/creatinine Hyperglycemia Continue SSI with insulin NovoLog and continue to monitor Accu-Cheks. HTN (hypertension) Continue losartan 50 mg by mouth twice a day, Cardura started yesterday DVT prophylaxis: Continue SCDs. Chemoprophylaxis contraindicated due to the degree of the thrombocytopenia and ITP. Problem Qualifiers (1) HTN (hypertension): Qualified Codes: I10 - Essential (primary) hypertension Ramon Nelson MD Aug 10, 2017 16:41
[2017-08-10] MEDS: predniSONE 10 MG TAB PO SCH (21:15)
[2017-08-11] VITALS: BP 134/71; PULSE 70; RESP 20; TEMP 98.4; O2SAT 98
[2017-08-11 04:00] VITALS: BP 109/57; PULSE 67; RESP 18; TEMP 97.6; O2SAT 99
[2017-08-11] MEDS: INSULIN ASPART SUPPLEMENTAL SCALE SQ SCH ×2 (08:00→11:44)
[2017-08-11 08:38] VITALS: BP 137/66; PULSE 59; RESP 16; TEMP 97.9; O2SAT 97
[2017-08-11] MEDS: DOXAZOSIN MESYLATE 2 MG TAB PO SCH (08:47)
[2017-08-11] MEDS: DOCUSATE SODIUM 50 MG/SENNA 8.6 MG TAB PO SCH (08:47)
[2017-08-11] MEDS: AMIODARONE 200 MG TAB PO SCH (08:48)
[2017-08-11] MEDS: LOSARTAN 50 MG TAB PO SCH (08:48)
[2017-08-11] MEDS: SODIUM CHLORIDE 0.9% FLUSH 10 ML FLUSH IV FLUSH SCH (08:49)
[2017-08-11 09:02] LABS: AUTOMATED NEUTROPHIL # 1.7 TH/MM3 (1.8-7.7); BASOPHIL % 0.2 % (0.0-2.0); HEMATOCRIT 30.5 % (35.0-46.0); LYMPH % 11.9 % (9.0-44.0); LYMPHOCYTE # 0.2 TH/MM3 (1.0-4.8); MEAN CELL VOLUME 98.8 FL (80.0-100.0); MEAN CORPUSCULAR HEMOGLOBIN 34.1 PG (27.0-34.0); MEAN CORPUSCULAR HGB CONC 34.5 % (32.0-36.0); MONO % 2.2 % (0.0-8.0); NEUT % 85.7 % (16.0-70.0); PLATELET COUNT 67 TH/MM3 (150-450); RED BLOOD COUNT 3.09 MIL/MM3 (4.00-5.30); RED CELL DISTRIBUTION WIDTH 13.8 % (11.6-17.2)
[2017-08-11 09:03] LABS: HEMO FLAGS AUTO DIFF
[2017-08-11 09:24] LABS: BICARBONATE 25.1 MEQ/L (21.0-32.0); POTASSIUM 4.5 MEQ/L (3.5-5.1)
[2017-08-11 09:31] LABS: PLATELET ESTIMATE SMEAR LOW (NORMAL); PLATELET MORPHOLOGY NORMAL (NORMAL); SCAN/DIFF AUTO DIFF CONFIRMED
--- NOTE | 2017-08-11 09:55 | PD.ONC.PN ---
Subjective Subjective Remarks Afebrile overnight. Patient resting in bed in nad. Ready to go home. No bleeding. Objective Data Date Time Temp Pulse Resp B/P (MAP) Pulse Ox O2 Delivery O2 Flow Rate FiO2 08/11/17 04:00 97.6 67 18 109/57 (74) 99 08/11/17 00:00 98.4 70 20 134/71 (92) 98 08/10/17 20:00 98.3 74 16 122/64 (83) 99 08/10/17 19:15 76 08/10/17 16:01 97.8 61 16 129/67 (87) 98 08/10/17 12:30 97.6 62 16 113/54 (73) 97 08/11/17 08/11/17 08/11/17 07:00 15:00 23:00 Intake Total 480 ml Output Total 450 ml Balance 30 ml Result Diagram: 08/11/17 0850 08/11/17 0850 Laboratory Results Laboratory Tests Test 08/11/17 08:50 White Blood Count 2.0 TH/MM3 Red Blood Count 3.09 MIL/MM3 Hemoglobin 10.5 GM/DL Hematocrit 30.5 % Mean Corpuscular Volume 98.8 FL Mean Corpuscular Hemoglobin 34.1 PG Mean Corpuscular Hemoglobin Concent 34.5 % Red Cell Distribution Width 13.8 % Platelet Count 67 TH/MM3 Mean Platelet Volume 9.7 FL Neutrophils (%) (Auto) 85.7 % Lymphocytes (%) (Auto) 11.9 % Monocytes (%) (Auto) 2.2 % Eosinophils (%) (Auto) 0.0 % Basophils (%) (Auto) 0.2 % Neutrophils # (Auto) 1.7 TH/MM3 Lymphocytes # (Auto) 0.2 TH/MM3 Monocytes # (Auto) 0.0 TH/MM3 Eosinophils # (Auto) 0.0 TH/MM3 Basophils # (Auto) 0.0 TH/MM3 CBC Comment AUTO DIFF Differential Comment AUTO DIFF CONFIRMED Platelet Estimate LOW Platelet Morphology Comment NORMAL Blood Urea Nitrogen 40 MG/DL Creatinine 1.06 MG/DL Random Glucose 137 MG/DL Calcium Level 8.3 MG/DL Sodium Level 138 MEQ/L Potassium Level 4.5 MEQ/L Chloride Level 106 MEQ/L Carbon Dioxide Level 25.1 MEQ/L Anion Gap 7 MEQ/L Estimat Glomerular Filtration Rate 50 ML/MIN Administered Medications Medications (Trade) Dose Ordered Sig/Brendan Route PRN Reason Start Time Stop Time Status Last Admin Dose Admin Sodium Chloride (NS Flush) 2 ml BID IV FLUSH 08/05/17 21:00 08/11/17 08:49 Acetaminophen (Tylenol) 650 mg Q4H PRN PO TEMP > 100.4 08/05/17 18:15 08/09/17 09:54 Ondansetron HCl (Zofran Inj) 4 mg Q6H PRN IVP NAUSEA OR VOMITING 08/05/17 18:15 08/09/17 20:40 Senna/Docusate Sodium (Alyssa-Colace) 1 tab BID PO 08/05/17 21:00 08/11/17 08:47 Prednisone (Deltasone) 70 mg DAILY@2100 PO 08/05/17 21:00 08/10/17 21:15 Amiodarone HCl (Cordarone) 200 mg BID PO 08/06/17 09:00 08/11/17 08:48 Losartan Potassium (Cozaar) 50 mg BID PO 08/06/17 09:00 08/11/17 08:48 Acetaminophen (Tylenol) 650 mg Q4H PRN PO SEE LABEL COMMENTS 08/06/17 10:30 08/07/17 08:28 Diphenhydramine HCl (Benadryl) 25 mg Q4H PRN PO SEE LABEL COMMENTS 08/06/17 10:30 08/06/17 10:59 Dextrose 1,000 ml @ 30 mls/hr Q24H IV 08/06/17 19:30 08/08/17 07:36 Amlodipine Besylate (Norvasc) 10 mg DAILY PO 08/07/17 09:45 08/11/17 08:48 Doxazosin Mesylate (Cardura) 2 mg DAILY PO 08/09/17 09:00 08/11/17 08:47 Insulin Aspart (NovoLOG SUPPLEMENTAL SCALE) 1 ACHS SLIDING SCALE SQ 08/08/17 17:00 08/10/17 09:08 Objective Remarks GENERAL: Elderly female sitting up on the side of the bed in nad. SKIN: Warm and dry. scattered ecchymoses on extremities. HEAD: Normocephalic. EYES: No injection or drainage. NECK: Supple, trachea midline. CARDIOVASCULAR: +S1/S2 RESPIRATORY: Breath sounds equal bilaterally. No accessory muscle use. GASTROINTESTINAL: Abdomen soft, non-tender, nondistended. EXTREMITIES: No cyanosis, or edema. NEUROLOGICAL: aox3. normal speech. Assessment/Plan Assessment 77y/o female with h/o of pancytopenia, admitted with ITP Plan 1. ITP: platelets greater than 60K today 2. clear for discharge 3. rx for prednisone placed in chart. Attending Statement The exam, history, and the medical decision-making described in the above note were completed with the assistance of the mid-level provider. I reviewed and agree with the findings presented. I attest that I had a [id number] encounter with the patient on the same day, and personally performed and documented my assessment and findings in the medical record. doing well and no new bleeding. will discharge home today and give her a copy of our consult and her cbc plat counts which she will provide to her arnp at the apt. this . Questions questioned. Ena Woodall Aug 11, 2017 09:55 Benja Cheng MD Aug 11, 2017 10:29
--- NOTE | 2017-08-11 11:11 | HHI.PR ---
Subjective Remarks Follow-up acute ITP 08/10/17-patient seen and examined, platelet count trending up, patient denies any chest pain or shortness of breath. He denies any bleeding. No bowel movement 1 day. Headache improved 08/11/17-patient seen and examined, denies any bleeding and platelet count op to 60,000+. Ready for discharge home and Objective Vitals Vital Signs Date Time Temp Pulse Resp B/P (MAP) Pulse Ox O2 Delivery O2 Flow Rate FiO2 08/11/17 08:38 97.9 59 16 137/66 (89) 97 08/11/17 04:00 97.6 67 18 109/57 (74) 99 08/11/17 00:00 98.4 70 20 134/71 (92) 98 08/10/17 20:00 98.3 74 16 122/64 (83) 99 08/10/17 19:15 76 08/10/17 16:01 97.8 61 16 129/67 (87) 98 08/10/17 12:30 97.6 62 16 113/54 (73) 97 I/O 08/10/17 08/10/17 08/10/17 08/11/17 08/11/17 08/11/17 07:00 15:00 23:00 07:00 15:00 23:00 Intake Total 480 ml 480 ml Output Total 500 ml 450 ml Balance -20 ml 30 ml Intake Oral 480 ml 480 ml Output Urine Total 500 ml 450 ml # Voids 1 Result Diagram: 08/11/17 0850 08/11/17 0850 Imaging Last Impressions Liver Ultrasound 08/06/17 0000 Signed Impressions: Service Date/Time: Sunday, August 06, 2017 09:13 - CONCLUSION: 1. Status post cholecystectomy with slight prominence of the common bile duct. This is a common finding following cholecystectomy and generally secondary to reservoir effect. 2. Mild prominence of the right renal collecting system. Sergio Payne MD Head CT 08/06/17 0000 Signed Impressions: Service Date/Time: Sunday, August 06, 2017 20:35 - CONCLUSION: 1. Age-appropriate atrophy. 2. No acute findings. No evidence of acute hemorrhage. Ulises Freire MD Chest CT 08/06/17 0000 Signed Impressions: Service Date/Time: Sunday, August 06, 2017 14:08 - CONCLUSION: Normal examination, dense coronary atherosclerotic disease. Aaron Churchill MD Abdomen/Pelvis CT 08/06/17 0000 Signed Impressions: Service Date/Time: Sunday, August 06, 2017 14:08 - CONCLUSION: Normal examination. Aaron Churchill MD Objective Remarks GENERAL: NAD SKIN: Warm and dry. Petechiae to bilateral lower extremities HEAD: Normocephalic. EYES: No scleral icterus. No injection or drainage. NECK: Supple, trachea midline. No JVD or lymphadenopathy. CARDIOVASCULAR: Regular rate and rhythm without murmurs, gallops, or rubs. RESPIRATORY: Breath sounds equal bilaterally. No accessory muscle use. GASTROINTESTINAL: Abdomen soft, non-tender, nondistended. MUSCULOSKELETAL: No cyanosis, or edema. BACK: Nontender without obvious deformity. No CVA tenderness. 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 Platelet trending up 67K AL (acute kidney injury)-stage III chronic kidney disease Monitor BUN/creatinine Hyperglycemia Continue SSI with insulin NovoLog and continue to monitor Accu-Cheks. HTN (hypertension) Continue losartan 50 mg by mouth twice a day, Cardura DVT prophylaxis: Continue SCDs. Chemoprophylaxis contraindicated due to the degree of the thrombocytopenia and ITP. Problem Qualifiers (1) HTN (hypertension): Qualified Codes: I10 - Essential (primary) hypertension Ramon Nelson MD Aug 11, 2017 11:11
--- NOTE | 2017-08-11 11:17 | HHI.DS ---
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 The patient has a history of pancytopenia for which she sees a tunnel inspector in [place], Dr. Michel. She had a bone marrow biopsy done over the summer which per the patient was negative for cancer. She was initially diagnosed with her pancytopenia in 2014. She is also had a 60 pound weight loss since December. The patient reports that she had a nosebleed with multiple clots on Saturday and . She developed purpura on her bilateral upper extremities and within her mouth and tongue on Saturday. She called her tunnel inspector office who recommended further evaluation in the emergency department. On arrival to the emergency department , the patient's platelet count was 3. She denies active bleeding. Urine positive for large occult blood. CBC/BMP: 08/11/17 0850 08/11/17 0850 Significant Findings Laboratory Tests Test 08/08/17 15:42 08/09/17 09:10 08/10/17 05:20 08/11/17 08:50 White Blood Count 1.6 TH/MM3 (4.0-11.0) 2.2 TH/MM3 (4.0-11.0) 2.0 TH/MM3 (4.0-11.0) Red Blood Count 3.06 MIL/MM3 (4.00-5.30) 2.92 MIL/MM3 (4.00-5.30) 3.09 MIL/MM3 (4.00-5.30) Hemoglobin 10.6 GM/DL (11.6-15.3) 10.0 GM/DL (11.6-15.3) 10.5 GM/DL (11.6-15.3) Hematocrit 30.2 % (35.0-46.0) 28.8 % (35.0-46.0) 30.5 % (35.0-46.0) Mean Corpuscular Hemoglobin 34.7 PG (27.0-34.0) 34.2 PG (27.0-34.0) 34.1 PG (27.0-34.0) Platelet Count 36 TH/MM3 (150-450) 49 TH/MM3 (150-450) 67 TH/MM3 (150-450) Mean Platelet Volume 11.4 FL (7.0-11.0) 11.8 FL (7.0-11.0) Neutrophils (%) (Auto) 82.4 % (16.0-70.0) 86.1 % (16.0-70.0) 85.7 % (16.0-70.0) Neutrophils # (Auto) 1.3 TH/MM3 (1.8-7.7) 1.7 TH/MM3 (1.8-7.7) Lymphocytes # (Auto) 0.2 TH/MM3 (1.0-4.8) 0.2 TH/MM3 (1.0-4.8) 0.2 TH/MM3 (1.0-4.8) Neutrophils % (Manual) 95 % (16-70) Lymphocytes % 5 % (9-44) Neutrophils # (Manual) 1.5 TH/MM3 (1.8-7.7) Platelet Estimate LOW (NORMAL) LOW (NORMAL) Platelet Morphology Comment ENLARGED (NORMAL) Blood Urea Nitrogen 29 MG/DL (7-18) 40 MG/DL (7-18) 40 MG/DL (7-18) Creatinine 1.19 MG/DL (0.50-1.00) 1.04 MG/DL (0.50-1.00) 1.06 MG/DL (0.50-1.00) Random Glucose 167 MG/DL (74-106) 157 MG/DL (74-106) 137 MG/DL (74-106) Total Protein 9.7 GM/DL (6.4-8.2) 8.3 GM/DL (6.4-8.2) Albumin 2.9 GM/DL (3.4-5.0) 2.7 GM/DL (3.4-5.0) Sodium Level 135 MEQ/L (136-145) Anion Gap 4 MEQ/L (5-15) Estimat Glomerular Filtration Rate 44 ML/MIN (>89) 51 ML/MIN (>89) 50 ML/MIN (>89) Aspartate Amino Transf (AST/SGOT) 9 U/L (15-37) Calcium Level 8.3 MG/DL (8.5-10.1) PE at Discharge GENERAL: NAD SKIN: Warm and dry. Petechiae to bilateral lower extremities HEAD: Normocephalic. EYES: No scleral icterus. No injection or drainage. NECK: Supple, trachea midline. No JVD or lymphadenopathy. CARDIOVASCULAR: Regular rate and rhythm without murmurs, gallops, or rubs. RESPIRATORY: Breath sounds equal bilaterally. No accessory muscle use. GASTROINTESTINAL: Abdomen soft, non-tender, nondistended. MUSCULOSKELETAL: No cyanosis, or edema. BACK: Nontender without obvious deformity. No CVA tenderness. Hospital Course Patient with a history of pancytopenia admitted secondary to acute ITP for which she was treated initially with IVIG on 08/05, 08/06 and then started on oral prednisone with monitoring of platelet counts which prior to discharge increased to 67K. SSI is provided secondary to hyperglycemia with monitoring of Accu-Cheks. Patient was continued on her treatment for other chronic medical condition including hypertension. Prior to discharge, patient conditions improved vitals remained stable. She will follow outpatient with hematology on , 08/15/17 Pt Condition on Discharge: Stable Discharge Disposition: Discharge Home Discharge Time: <= 30 minutes Discharge Instructions DIET: Follow Instructions for: Heart Healthy Diet Activities you can perform: Regular-No Restrictions Follow up Referrals: Oncology - 3-5 Days PCP Follow-up - 1 Week New Medications: Prednisone (Prednisone) 10 Mg Tab 30 MG PO BID for ITP for 7 Days, #42 TAB 0 Refills Continued Medications: Alendronate (Alendronate) 70 Mg Tab 70 MG PO Q7D for Osteporosis Treatment, #4 TAB 0 Refills Amiodarone (Amiodarone) 200 Mg Tab 200 MG PO BID for Regulate Heart Beat, #60 TAB 0 Refills Aspirin (Aspirin) 81 Mg Chew 81 MG CHEW DAILY, TAB 0 Refills Cyanocobalamin (B12) 1,000 Mcg Tab Losartan (Losartan) 50 Mg Tab 50 MG PO BID for Blood Pressure Management, #60 TAB 0 Refills Polysaccharide Iron Complex (Ferrex 150) 150 Mg Iron Cap Ramon Nelson MD Aug 11, 2017 11:17
[2017-08-11] MEDS ORDERED: CARD2TAB PO (11:18)
== END 2017-08-11 13:57 | disposition home or self-care (01) | DRG 813 ==
LOC: NEDDLT 14:08 → N07A 16:59 → HCIN 08-06 16:36
PROVIDERS: ADMIT Hospitalist; ATTEND Hospitalist
PROC: 6A551Z2 Pheresis of Platelets, Multiple (ICD-10-PCS; principal; 2017-08-05)
PROC: 30233S1 Transfusion of Nonautologous Globulin into Peripheral Vein, Percutaneous Approach (ICD-10-PCS; 2017-08-05)
DX: D69.3 Immune thrombocytopenic purpura (principal); N17.9 Acute kidney failure, unspecified; D61.818 Other pancytopenia; I48.91 Unspecified atrial fibrillation; N18.3 Chronic kidney disease, stage 3 (moderate); R04.0 Epistaxis; I12.9 Hypertensive chronic kidney disease with stage 1 through stage 4 chronic kidney disease, or unspecified chronic kidney disease; Z85.42 Personal history of malignant neoplasm of other parts of uterus; Z90.710 Acquired absence of both cervix and uterus; J45.909 Unspecified asthma, uncomplicated; M19.90 Unspecified osteoarthritis, unspecified site; T38.0X5A Adverse effect of glucocorticoids and synthetic analogues, initial encounter; Y92.239 Unspecified place in hospital as the place of occurrence of the external cause; R73.9 Hyperglycemia, unspecified; R63.4 Abnormal weight loss
CPT/HCPCS: 36430; 70450; 71010; 71260; 74177; 76705; 80048; 80053; 80074; 81001; 82607; 82746; 82948; 83010; 83036; 83605; 83615; 84443; 85007; 85025; 85027; 85044; 85049; 85060; 85384; 85610; 85652; 85730; 86078; 86140; 86703; 86880; 86900; 86901; 87040; 87205; 88184; 88185; 93005; J1459; J1815; J2405; J7040; J7050; J7060; J7070; J7512; P9035; Q9967